=== PATIENT | female | born 1940 | race Caucasian/White ===

== ENCOUNTER → 2017-09-05 13:07 | Outpatient (CLI) | payer OTHER, SELFPAY ==
--- NOTE | 2017-09-05 | DI.US.S_ITS ---
PROCEDURE: US PERIPH VENOUS LOW EXTREM LT INDICATIONS: LEFT CALF SWELLING TECHNIQUE: Real-time imaging, as well as color and pulse Doppler interrogation, were performed of the lower extremity deep veins from the inguinal ligament to the popliteal fossa. COMPARISON: None. FINDINGS: The deep veins are normally compressible, and free of intraluminal thrombus. Color and pulse Doppler demonstrate normal phasic intraluminal flow. There is normal augmentation response to distal compression maneuver. Diffuse edema. Difficult exam. IMPRESSION: 1. Negative for DVT. Dictated by: Rosales Mai M.D. on 09/05/2017 at 15:51 Approved by: Rosales Mai M.D. on 09/05/2017 at 15:51
== END ==
PROVIDERS: PCP Internal Medicine; Visit Provider Physical Medicine & Rehabilitation
DX: M79.89 Other specified soft tissue disorders (principal)
CPT/HCPCS: 93971

== ENCOUNTER 2022-06-04 09:42 | Inpatient (IN) | payer OTHER, SELFPAY ==
[2022-06-04] VITALS (34 sets, daily range): BP systolic 92–232; BP diastolic 46–98; PULSE 75–102; RESP 16–24; TEMP 36.7–37.3; O2SAT 92–99; BMI 31.6
--- NOTE | 2022-06-04 09:50 | DI.RAD.S_ITS ---
PROCEDURE: XR CHEST 1V INDICATIONS: chest pain TECHNIQUE: One view of the chest was acquired. COMPARISON: None. FINDINGS: Surgical changes and devices: None. Lungs and pleura: There is mild pulmonary vascular congestion. No focal infiltrate. No pleural effusions or pneumothorax. Mediastinum: Mildly tortuous thoracic aorta with aortic arch calcification is seen. Heart size is mildly enlarged. Bones and chest wall: No suspicious bony lesions. Overlying soft tissues appear unremarkable. IMPRESSION: Cardiomegaly and mild congestion. No focal infiltrate, pleural effusion or pneumothorax. Dictated by: Andrew Zamarripa M.D. on 06/04/2022 at 10:21 Approved by: Andrew Zamarripa M.D. on 06/04/2022 at 10:24
[2022-06-04] MEDS: EPINEPHrine 1 MG/ML (09:53)
[2022-06-04] MEDS: diphenhydrAMINE 50 MG/ML VIAL (09:54)
[2022-06-04] MEDS: SODIUM CHLORIDE 0.9% 1,000 ML 1000 ML IV ×2 (09:54→12:40)
[2022-06-04] MEDS: methylPREDNISolone 125 MG/2 ML VIAL (09:54)
--- NOTE | 2022-06-04 09:54 | ED_ITS ---
HPI - Weakness General Chief complaint: Neuro Symptoms/Deficit Stated complaint: Increased L Weakness Time Seen by Provider: 06/04/22 09:49 History of Present Illness HPI Narrative: Patient is a 82-year-old female history of hemorrhagic stroke with left-sided weakness in 2009 presents today with worsening left-sided weakness when she woke up rash allover and hypotension. EMS reports that they had initial blood pressure in the 70s. She feels weaker than normal she is normally able to move her left arm a little bit however today it is much worse. She has no headache. Her blood pressure has improved with fluids to 103/80. She has no chest pain palpitations abdominal pain nausea or vomiting. She is noted have significant urticaria all over her body. She reports that she used a new tide detergent. She did not notice that she had a rash she only noticed that she had itching all over. She has no lip swelling tongue swelling or difficulty breathing. Related Data Home Medications Medication Instructions Recorded Confirmed alendronate 70 mg tablet (Fosamax) 70 mg PO QWEEKWE ##0 07/15/17 06/04/22 cholecalciferol (vitamin D3) 50 2,000 unit PO QDAY ##0 07/15/17 06/04/22 mcg (2,000 unit) capsule (Vitamin D3) fluoride (sodium) 1.1 % dental gel QDAY ##0 07/15/17 (PreviDent) hydrochlorothiazide 25 mg tablet 50 mg PO QDAY ##0 07/15/17 06/04/22 ibuprofen 200 mg tablet (Advil) 200 mg PO QDAYP PRN ##0 07/15/17 latanoprost 0.005 % eye drops 1 drp OPHTH HS ##0 07/15/17 06/04/22 levothyroxine 100 mcg tablet 100 mcg PO QAM ##0 07/15/17 06/04/22 losartan 50 mg tablet 50 mg PO QDAY ##0 07/15/17 06/04/22 omeprazole 20 mg tablet,delayed 20 mg PO QDAY ##0 07/15/17 06/04/22 release sulfacetamide sodium-sulfur 10 %-5 1 amari TP ##0 07/15/17 % (w/w) topical cream baclofen 10 mg tablet 10 mg PO BEDTIME 06/04/22 06/04/22 dorzolamide 22.3 mg-timolol 6.8 1 drp ophthalmic (eye) BID 06/04/22 06/04/22 mg/mL eye drops doxycycline hyclate 50 mg tablet 50 mg PO DAILY 06/04/22 06/04/22 metronidazole 0.75 % topical cream 1 applic topical BEDTIME 06/04/22 06/04/22 tolterodine 2 mg capsule,extended 2 mg PO DAILY PRN Spasms 06/04/22 06/04/22 release 24 hr Previous Rx's Medication Instructions Recorded meloxicam 7.5 mg tablet (Mobic) 7.5 mg PO BIDCC PRN #20 tabs 07/15/17 Allergies Allergy/AdvReac Type Severity Reaction Status Date / Time cranberry [CRANBERRY] Allergy Unknown NAUSEA/VOMI Verified 06/04/22 09:49 TING Penicillins [PENICILLINS] Allergy Unknown ITCHING Verified 06/04/22 09:49 almond [ALMOND] AdvReac Unknown DIARRHEA/GI Verified 06/04/22 09:49 Sulfa (Sulfonamide AdvReac Unknown NAUSEA Verified 06/04/22 09:49 Antibiotics) [SULFA (SULFONAMIDE ANTIBIOTICS)] walnut [WALNUT] AdvReac Unknown DIARRHEA/GI Verified 06/04/22 09:49 Review of Systems Review of Systems ROS Unobtainable: All systems reviewed & are unremarkable except as noted in HPI and below Patient History Social History Smoking Status: Never smoker Exam Initial Vital Signs Initial Vital Signs: Vital Signs Temperature 98.1 F 06/04/22 09:45 Pulse Rate 91 H 06/04/22 09:45 Respiratory Rate 18 06/04/22 09:45 Blood Pressure 103/51 L 06/04/22 09:45 Pulse Oximetry 98 06/04/22 09:45 Oxygen Delivery Method 06/04/22 09:45 GENERAL: Alert pleasant 82-year-old female HEENT: Head atraumatic,EOMI, pupils reactive, left-sided facial droop chronic CARDIOVASCULAR: Regular rate and rhythm without murmurs, rubs or gallops. RESPIRATORY: Breath sounds equal bilaterally, no wheezes rales or rhonchi. ABDOMEN: Soft, nontender. Normoactive bowel sounds all 4 quadrants. No guar ding or rebound. EXTREMITIES: Normal range of motion, no clubbing or edema. Neurovascularly intact NEUROLOGICAL: Alert and oriented x4. Weakness in left arm but able to [employer] my hands on able to lift left arm SKIN: Warm, dry, no laceration, no petechiae, no rashes or lesions. Course Orders Ordered: ED Orders 06/04/22 10:36 US abdomen limited Stat 06/04/22 11:20 Blood Culture Stat COVID19 -Nasal RAPID/Pre-Proc Stat 06/04/22 11:46 Urinalysis and Microscopic Stat 06/04/22 12:18 Lactate (Lactic Acid) Stat Acetaminophen (Acetaminophen 325 Mg Tablet) 650 mg PO Q6H PRN PRN Reason: Fever/Mild Pain (1-3) Baclofen (Baclofen 10 Mg Tablet) 10 mg PO BEDTIME CHAVA Diphenhydramine HCl (Diphenhydramine 50 Mg/Ml Vial) 25 mg IV Q6HR PRN PRN Reason: Itching/Rash Last Admin: 06/04/22 14:02 Dose: 25 mg Documented By: EDMUND Dorzolamide/Timolol (Dorzolamide/Timolol Ophth 10 Ml) 1 drops EYE-BOTH BID CHAVA Famotidine (Famotidine 20 Mg/2 Ml Vial) 20 mg IV NOW CHAVA Last Admin: 06/04/22 10:10 Dose: 20 mg Documented By: GISSELLE Hydromorphone HCl (Hydromorphone 0.5 Mg Inj) 0.5 mg IV Q4H PRN PRN Reason: Pain, Moderate (4-6) Sodium Chloride (Normal Saline 0.9%) 1,000 mls @ 1,000 mls/hr IV CONT CHAVA Last Infusion: 06/04/22 11:02 Dose: 0 mls/hr Documented By: Admin: 06/04/22 09:54 Dose: 1,000 mls/hr Documented By: GRABIEL Sodium Chloride (Normal Saline 0.9%) 1,000 mls @ 100 mls/hr IV CONT CHAVA Stop: 06/05/22 00:44 Last Infusion: 06/04/22 14:44 Dose: 100 mls/hr Documented By: Infusion: 06/04/22 14:12 Dose: 0 mls/hr Documented By: Admin: 06/04/22 14:06 Dose: 100 mls/hr Documented By: EDMUND Ceftriaxone Sodium 2,000 mg/ (Sodium Chloride) 100 mls @ 200 mls/hr IV Q24H [facility]AVA Stop: 06/10/22 08:59 Metronidazole (Flagyl) 500 mg in 100 mls @ 100 mls/hr IV Q8H [facility] Latanoprost (Latanoprost 0.005% Ophth 2.5 Ml) 1 drops EYE-BOTH BEDTIME [facility] Levothyroxine Sodium (Levothyroxine 100 Mcg Tablet) 100 mcg PO DAILY@0600 [facility] Melatonin (Melatonin 3 Mg Tablet) 6 mg PO BEDTIME PRN PRN Reason: Insomnia Naloxone HCl (Naloxone 0.4 Mg/Ml Vial) 0.2 mg IV Q2MIN PRN PRN Reason: Opiate Reversal Oxycodone HCl (Oxycodone Ir 5 Mg Tablet) 5 mg PO Q4HR PRN PRN Reason: Pain, Moderate (4-6) Pantoprazole Sodium (Pantoprazole Dr 40 Mg Tablet) 40 mg PO 0700 [facility] Polyethylene Glycol (Polyethylene Glycol 3350 17 Gm Powd.Pack) 17 gm PO DAILY PRN PRN Reason: Constipation Sennosides (Sennosides 8.6 Mg Tablet) 8.6 mg PO BID PRN PRN Reason: Constipation Discontinued Medications Diphenhydramine HCl (Diphenhydramine 50 Mg/Ml Vial) 25 mg IV NOW ONE Stop: 06/04/22 09:56 Last Admin: 06/04/22 09:56 Dose: Not Given Documented By: GRABIEL Epinephrine HCl (Epinephrine 1 Mg/Ml) 0.5 mg IM NOW ONE Stop: 06/04/22 09:56 Last Admin: 06/04/22 09:56 Dose: Not Given Documented By: GRABIEL Ceftriaxone Sodium 2,000 mg/ (Sodium Chloride) 100 mls @ 200 mls/hr IV NOW ONE Stop: 06/04/22 11:26 Last Infusion: 06/04/22 12:25 Dose: 0 mls/hr Documented By: Admin: 06/04/22 11:58 Dose: 200 mls/hr Documented By: GISSELLE Metronidazole (Flagyl) 500 mg in 100 mls @ 100 mls/hr IV NOW ONE Stop: 06/04/22 13:14 Last Infusion: 06/04/22 13:38 Dose: 0 mls/hr Documented By: Admin: 06/04/22 12:27 Dose: 100 mls/hr Documented By: GISSELLE Sodium Chloride (Normal Saline 0.9%) 1,000 mls @ 1,000 mls/hr IV BOLUS ONE Stop: 06/04/22 13:25 Last Infusion: 06/04/22 13:51 Dose: 0 mls/hr Documented By: Admin: 06/04/22 12:40 Dose: 1,000 mls/hr Documented By: GISSELLE POTASSIUM CHLORIDE IN WATER (Potassium Cl 10 Meq/100 Ml Faith) 10 meq in 100 mls @ 100 mls/hr IV Q1H [facility] Stop: 06/04/22 16:44 Last Admin: 06/04/22 14:44 Dose: Not Given Documented By: Admin: 06/04/22 14:44 Dose: Not Given Documented By: ROHIT POTASSIUM CHLORIDE IN WATER (Potassium Cl 10 Meq/100 Ml Faith) 10 meq in 100 mls @ 100 mls/hr IV Q1H [facility] Stop: 06/04/22 18:59 Last Admin: 06/04/22 17:51 Dose: 100 mls/hr Documented By: Infusion: 06/04/22 17:38 Dose: 100 mls/hr Documented By: Admin: 06/04/22 16:38 Dose: 100 mls/hr Documented By: Infusion: 06/04/22 16:29 Dose: 100 mls/hr Documented By: Admin: 06/04/22 15:29 Dose: 100 mls/hr Documented By: Infusion: 06/04/22 15:29 Dose: 100 mls/hr Documented By: Admin: 06/04/22 14:45 Dose: 100 mls/hr Documented By: ROHIT Methylprednisolone (Methylprednisolone 125 Mg/2 Ml Vial) 125 mg IV NOW ONE Stop: 06/04/22 09:56 Last Admin: 06/04/22 09:57 Dose: Not Given Documented By: CTS Vital Signs Vital signs: Vital Signs - 8 hr 06/04/22 11:30 06/04/22 11:54 06/04/22 11:54 Pulse Rate 91 H 93 H Respiratory Rate 19 22 Blood Pressure 110/58 L Pulse Oximetry 96 97 06/04/22 12:00 06/04/22 12:00 06/04/22 12:10 Pulse Rate 92 H Respiratory Rate 22 Blood Pressure 107/55 L 103/52 L Pulse Oximetry 96 06/04/22 12:10 06/04/22 12:20 06/04/22 12:20 Pulse Rate 90 89 Respiratory Rate 21 24 Blood Pressure 102/53 L Pulse Oximetry 96 96 06/04/22 12:30 06/04/22 12:30 Pulse Rate 90 Respiratory Rate 21 Blood Pressure 105/59 L Pulse Oximetry 97 MDM - Weakness Lab Data 06/04/22 09:50 06/04/22 09:50 Labs: Lab Results 06/04/22 06/04/22 06/04/22 Range/Units 09:50 09:50 09:50 WBC 21.1 H (4.5-11.0) X10^3/uL RBC 5.11 (4.0-5.2) X10^6/uL Hgb 14.5 (12.0-16.0) g/dL Hct 43.0 (36-46) % MCV 84.0 (80-100) fL MCH 28.3 (26-34) PG MCHC 33.7 (30-36) % RDW 14.4 (11.6-14.8) % Plt Count 311 (150-400) X10^3/uL Neut % (Auto) 86.1 H (50-75) % Lymph % (Auto) 5.9 L (25-40) % [place] % (Auto) 7.8 (3-14) % Eos % (Auto) 0.1 L (2-4) % Baso % (Auto) 0.1 (0-2) % Neut # (Auto) 61842 H (6475-9421) /uL Lymph # (Auto) 1200 (6595-2246) /uL [place] # (Auto) 1600 H (0-900) /uL Eos # (Auto) 0 (0-450) /uL Baso # (Auto) 0 (0-100) /uL PT 16.3 H (10.1-12.7) SECONDS INR 1.4 H (0.9-1.3) Sodium 131 L (137-145) mmol/L Potassium 3.2 L (3.4-5.1) mmol/L Chloride 100 (98-107) mmol/L Carbon Dioxide 19 L (22-32) mmol/L BUN 20 H (7-17) mg/dL Creatinine 1.30 H (0.52-1.04) mg/dL Estimated GFR 42 L (>60) mL/min BUN/Creatinine Ratio 15.4 (6-22) Glucose 121 H (80-110) mg/dL Lactate (0.7-2.1) mmol/L Calcium 9.1 (8.4-10.2) mg/dL Magnesium (1.6-2.3) mg/dL Total Bilirubin 1.9 H (0.2-1.3) mg/dL AST 33 (14-36) IU/L ALT 24 (<35) IU/L Alkaline Phosphatase 91 (38-126) U/L Total Creatine Kinase 88 (30-135) U/L CK-MB (CK-2) TNP CK-MB (CK-2) Rel Index TNP Troponin I < 0.012 (0.01-0.034) ng/mL Total Protein 6.4 (6.3-8.2) g/dL Albumin 3.3 L (3.5-5.0) g/dL Globulin 3.1 (1.7-4.1) g/dL Albumin/Globulin Ratio 1.1 (1.0-2.8) Lipase 29 (23-300) U/L Procalcitonin (<0.5) ng/mL TSH (0.47-4.68) uIU/mL Urine Color Urine Appearance Urine pH (4.5-8.0) Ur Specific [place] (1.000-1.035) Urine Protein (Negative) Urine Glucose (UA) (Negative) g/dL Urine Ketones (NEGATIVE) Urine Occult Blood (Negative) Urine Nitrate (Negative) Urine Bilirubin (NEGATIVE) Urine Urobilinogen (0.2) E.U./dL Ur Leukocyte Esterase (NEGATIVE) Urine RBC (0-5/HPF) Urine WBC (0-5/HPF) Urine Bacteria (None) Ur Culture Indicated? Micro UA Comment SARS-CoV-2 (PCR) (Negative) 06/04/22 06/04/22 06/04/22 Range/Units 09:58 09:58 10:52 WBC (4.5-11.0) X10^3/uL RBC (4.0-5.2) X10^6/uL Hgb (12.0-16.0) g/dL Hct (36-46) % MCV (80-100) fL MCH (26-34) PG MCHC (30-36) % RDW (11.6-14.8) % Plt Count (150-400) X10^3/uL Neut % (Auto) (50-75) % Lymph % (Auto) (25-40) % [place] % (Auto) (3-14) % Eos % (Auto) (2-4) % Baso % (Auto) (0-2) % Neut # (Auto) (7132-6456) /uL Lymph # (Auto) (6815-3421) /uL [place] # (Auto) (0-900) /uL Eos # (Auto) (0-450) /uL Baso # (Auto) (0-100) /uL PT (10.1-12.7) SECONDS INR (0.9-1.3) Sodium (137-145) mmol/L Potassium (3.4-5.1) mmol/L Chloride (98-107) mmol/L Carbon Dioxide (22-32) mmol/L BUN (7-17) mg/dL Creatinine (0.52-1.04) mg/dL Estimated GFR (>60) mL/min BUN/Creatinine Ratio (6-22) Glucose (80-110) mg/dL Lactate 1.8 (0.7-2.1) mmol/L Calcium (8.4-10.2) mg/dL Magnesium 1.7 (1.6-2.3) mg/dL Total Bilirubin (0.2-1.3) mg/dL AST (14-36) IU/L ALT (<35) IU/L Alkaline Phosphatase (38-126) U/L Total Creatine Kinase (30-135) U/L CK-MB (CK-2) CK-MB (CK-2) Rel Index Troponin I (0.01-0.034) ng/mL Total Protein (6.3-8.2) g/dL Albumin (3.5-5.0) g/dL Globulin (1.7-4.1) g/dL Albumin/Globulin Ratio (1.0-2.8) Lipase (23-300) U/L Procalcitonin 0.59 H (<0.5) ng/mL TSH (0.47-4.68) uIU/mL Urine Color Urine Appearance Urine pH (4.5-8.0) Ur Specific [place] (1.000-1.035) Urine Protein (Negative) Urine Glucose (UA) (Negative) g/dL Urine Ketones (NEGATIVE) Urine Occult Blood (Negative) Urine Nitrate (Negative) Urine Bilirubin (NEGATIVE) Urine Urobilinogen (0.2) E.U./dL Ur Leukocyte Esterase (NEGATIVE) Urine RBC (0-5/HPF) Urine WBC (0-5/HPF) Urine Bacteria (None) Ur Culture Indicated? Micro UA Comment SARS-CoV-2 (PCR) (Negative) 06/04/22 06/04/22 06/04/22 Range/Units 10:52 11:20 11:46 WBC (4.5-11.0) X10^3/uL RBC (4.0-5.2) X10^6/uL Hgb (12.0-16.0) g/dL Hct (36-46) % MCV (80-100) fL MCH (26-34) PG MCHC (30-36) % RDW (11.6-14.8) % Plt Count (150-400) X10^3/uL Neut % (Auto) (50-75) % Lymph % (Auto) (25-40) % [place] % (Auto) (3-14) % Eos % (Auto) (2-4) % Baso % (Auto) (0-2) % Neut # (Auto) (4343-4884) /uL Lymph # (Auto) (5479-9923) /uL [place] # (Auto) (0-900) /uL Eos # (Auto) (0-450) /uL Baso # (Auto) (0-100) /uL PT (10.1-12.7) SECONDS INR (0.9-1.3) Sodium (137-145) mmol/L Potassium (3.4-5.1) mmol/L Chloride (98-107) mmol/L Carbon Dioxide (22-32) mmol/L BUN (7-17) mg/dL Creatinine (0.52-1.04) mg/dL Estimated GFR (>60) mL/min BUN/Creatinine Ratio (6-22) Glucose (80-110) mg/dL Lactate (0.7-2.1) mmol/L Calcium (8.4-10.2) mg/dL Magnesium (1.6-2.3) mg/dL Total Bilirubin (0.2-1.3) mg/dL AST (14-36) IU/L ALT (<35) IU/L Alkaline Phosphatase (38-126) U/L Total Creatine Kinase (30-135) U/L CK-MB (CK-2) CK-MB (CK-2) Rel Index Troponin I (0.01-0.034) ng/mL Total Protein (6.3-8.2) g/dL Albumin (3.5-5.0) g/dL Globulin (1.7-4.1) g/dL Albumin/Globulin Ratio (1.0-2.8) Lipase (23-300) U/L Procalcitonin (<0.5) ng/mL TSH 0.89 (0.47-4.68) uIU/mL Urine Color Yellow Urine Appearance Clear Urine pH 7.5 (4.5-8.0) Ur Specific [place] 1.010 (1.000-1.035) Urine Protein Trace H (Negative) Urine Glucose (UA) Negative (Negative) g/dL Urine Ketones Negative (NEGATIVE) Urine Occult Blood Negative (Negative) Urine Nitrate Negative (Negative) Urine Bilirubin Negative (NEGATIVE) Urine Urobilinogen 0.2 (0.2) E.U./dL Ur Leukocyte Esterase Negative (NEGATIVE) Urine RBC None seen (0-5/HPF) Urine WBC None seen (0-5/HPF) Urine Bacteria None seen (None) Ur Culture Indicated? Cult not indicated Micro UA Comment Microscopic normal SARS-CoV-2 (PCR) Negative (Negative) 06/04/22 Range/Units 12:18 WBC (4.5-11.0) X10^3/uL RBC (4.0-5.2) X10^6/uL Hgb (12.0-16.0) g/dL Hct (36-46) % MCV (80-100) fL MCH (26-34) PG MCHC (30-36) % RDW (11.6-14.8) % Plt Count (150-400) X10^3/uL Neut % (Auto) (50-75) % Lymph % (Auto) (25-40) % [place] % (Auto) (3-14) % Eos % (Auto) (2-4) % Baso % (Auto) (0-2) % Neut # (Auto) (8278-1899) /uL Lymph # (Auto) (4812-0375) /uL [place] # (Auto) (0-900) /uL Eos # (Auto) (0-450) /uL Baso # (Auto) (0-100) /uL PT (10.1-12.7) SECONDS INR (0.9-1.3) Sodium (137-145) mmol/L Potassium (3.4-5.1) mmol/L Chloride (98-107) mmol/L Carbon Dioxide (22-32) mmol/L BUN (7-17) mg/dL Creatinine (0.52-1.04) mg/dL Estimated GFR (>60) mL/min BUN/Creatinine Ratio (6-22) Glucose (80-110) mg/dL Lactate 2.3 H (0.7-2.1) mmol/L Calcium (8.4-10.2) mg/dL Magnesium (1.6-2.3) mg/dL Total Bilirubin (0.2-1.3) mg/dL AST (14-36) IU/L ALT (<35) IU/L Alkaline Phosphatase (38-126) U/L Total Creatine Kinase (30-135) U/L CK-MB (CK-2) CK-MB (CK-2) Rel Index Troponin I (0.01-0.034) ng/mL Total Protein (6.3-8.2) g/dL Albumin (3.5-5.0) g/dL Globulin (1.7-4.1) g/dL Albumin/Globulin Ratio (1.0-2.8) Lipase (23-300) U/L Procalcitonin (<0.5) ng/mL TSH (0.47-4.68) uIU/mL Urine Color Urine Appearance Urine pH (4.5-8.0) Ur Specific [place] (1.000-1.035) Urine Protein (Negative) Urine Glucose (UA) (Negative) g/dL Urine Ketones (NEGATIVE) Urine Occult Blood (Negative) Urine Nitrate (Negative) Urine Bilirubin (NEGATIVE) Urine Urobilinogen (0.2) E.U./dL Ur Leukocyte Esterase (NEGATIVE) Urine RBC (0-5/HPF) Urine WBC (0-5/HPF) Urine Bacteria (None) Ur Culture Indicated? Micro UA Comment SARS-CoV-2 (PCR) (Negative) Imaging Data CT scan - head: Radiologist Impression: ?Karen Smith MR#: [id number] : 1940 Acct:[id number] Age/Sex: 82 / F Date of Service: 06/04/22 Loc: ED Accession Number: [id number] ?? Procedure: CT Stroke Ordering Provider: Romy Farias D.O. PROCEDURE:? CT STROKE ? INDICATIONS:? worse left weakness hx of bleed ? TECHNIQUE:? Noncontrast 4.5 mm thick angled axial sections acquired from the foramen magnum to the vertex, with coronal reformats.? For radiation dose reduction, the following was used:? automated exposure control, adjustment of mA and/or kV according to patient size.? ? COMPARISON:? None. ? FINDINGS:? Image quality:? Excellent.? ? CSF spaces:? Basal cisterns are patent.? No extra-axial fluid collections.? Ex vacuole dilatation of the right lateral ventricle. ? Brain:? No midline shift.? No intracranial masses or hemorrhage.? Small area of encephalomalacia at the right basal ganglia/thalamus due to remote infarct.? No area of hypodensity in a large vascular distribution to suggest acute infarction. Periventricular hypodensity consistent with chronic microvascular ischemic change.? Intracranial atherosclerotic calcifications.? Age-related parenchymal loss. ? Skull and face:? Calvarium and visualized facial bones are intact, without suspicious lesions.? ? Sinuses:? Visualized sinuses and mastoids are clear.? ? IMPRESSION:? No acute intracranial hemorrhage. ? Encephalomalacia from prior infarct in the right basal ganglia/thalamus. ? Comment: Findings were discussed with Romy Farias at 10:16 a.m. ? This study fulfills neurological imaging criteria for inclusion or exclusion of acute stroke therapies based on available published neurological imaging guidelines.? ? ? Dictated by: Constantino Malik M.D. on 06/04/2022 at 10:12 ? ? CTA - brain/neck: Radiologist Impression: Signed Patient: Karen Smith MR#: [id number] : 1940 Acct:[id number] Age/Sex: 82 / F Date of Service: 06/04/22 Loc: ED Accession Number: [id number] ?? Procedure: CT angio head and neck Ordering Provider: Romy Farias D.O. PROCEDURE:? CT ANGIO HEAD AND NECK ? INDICATIONS:? worse left weakness hx of bleed ? TECHNIQUE:? Pre-contrast 4.5 mm thick sections acquired from the foramen magnum to the vertex.? After the administration of intravenous contrast, 1 mm thick sections acquired from th e aortic arch through the [place].? Post-contrast 4.5 mm thick sections then re- acquired from the foramen magnum to the vertex.? 3-dimensional fdhobkg-yfkawdfhs-qgooitcxri (MIP) and/or volume rendering reformats were acquired of the central intracranial vasculature and neck separately. For radiation dose reduction, the following was used:? automated exposure control, adjustment of mA and/or kV according to patient size.? ? COMPARISON:? [facility], CT, CT STROKE, 06/04/2022, 10:01. ? FINDINGS:? Image quality:? Excellent.? ? BRAIN:? CSF spaces:? Ventricles are normal in size and shape.? Basal cisterns are patent.? No extra-axial fluid collections.? ? Brain:? No midline shift.? No intracranial bleeds or masses.? [place]-white matter interface appears intact.? Old right basal ganglia/deep white matter infarct with encephalomalacia. ?Old focal right cerebellar infarct.? Age-related volume loss and xpiv-[id number] small vessel ischemic change. ? Skull and face:? Calvarium and facial bones appear intact, without suspicious lesions.? Orbits appear normal.? ? Sinuses:? Sinuses and mastoids are clear.? ? HEAD CT ANGIOGRAPHY:? Anterior circulation:? Intracranial internal carotid arteries are normal in size and flow.? The flow within the paired anterior cerebral arteries is normal and symmetric.? The flow within the middle cerebral arteries is normal and symmetric.? The anterior communicating artery is seen.? No aneurysms are seen.? ? Posterior circulation:? Visualized portions of the vertebral arteries demonstrate normal caliber, and join to form a normal appearing basilar artery.? Flow within the posterior cerebral arteries is normal and symmetric.? No aneurysms are seen.? ? NECK CT ANGIOGRAPHY:? Carotid system:? The great vessels demonstrate a bovine arch anatomy as they arise from the aortic arch.? The origins of the common carotid arteries appear patent.? The common carotid arteries demonstrate normal caliber and courses.? The bifurcation regions are both widely patent.? There is mild bilateral proximal internal carotid artery stenosis secondary to soft plaque, less than 50%. ? Posterior circulation:? The origins of the vertebral arteries both appear widely patent.? The more superior extracranial portions of both vertebral arteries also demonstrate normal courses and calibers.? They join to form a normal appearing basilar artery.? ? Soft tissues:? Visualized neck soft tissues demonstrate no suspicious abnormalities.? ? Bones:? No suspicious bony lesions.? Visualized cervical spine appears normally aligned.? IMPRESSION:? ? 1. Old small infarcts.? Rqja-wx-uakqfcuq small vessel ischemic change. ? 2. No evidence of acute stroke, hemorrhage, or mass. ? 3. Unremarkable CTA head.? No stenosis, aneurysm, occlusion, or focal filling defect. ? 4. Less than 50% bilateral internal carotid artery stenosis. ? Comment: Findings were discussed with Dr. Farias on? 05/25 06/10 at 1034 hours ? ? ? Any quantitative measurements of stenosis were performed using NASCET criteria.? ? ? Dictated by: Ziggy Lerma M.D. on 06/04/2022 at 10:28 ? ? US - abdomen: Radiologist Impression: Ultrasound Report Signed Patient: Karen Smith MR#: [id number] : 1940 Acct:[id number] Age/Sex: 82 / F Date of Service: 06/04/22 Loc: ED Accession Number: [id number] ?? Procedure: US abdomen limited Ordering Provider: Romy Farias D.O. PROCEDURE: US ABDOMEN LIMITED ? INDICATIONS:? PAIN ? TECHNIQUE:? Real-time focused scanning was performed of the abdomen, with image documentation.? ? COMPARISON:? None. ? FINDINGS:? The liver is echogenic, suggesting fatty change. ? There are gallstones present in the gallbladder.? The gallbladder is somewhat distended.? The there is gallbladder wall thickening and some gallbladder wall edema.? No sonographic Marie sign noted. ? IMPRESSION:? ? 1. Probable fatty liver. ? 2. Constellation of findings in the gallbladder may represent acute cholecystitis.? There are gallstones.? The gallbladder wall is thickened with wall edema.? The gallbladder is distended.? Suggest clinical correlation. ? ? Dictated by: Ziggy Lerma M.D. on 06/04/2022 at 12:01 ? ? Approved by: Ziggy Lerma M.D. on 06/04/2022 at 12:03 ? ECG Data Interpretation: With artifact rate 89 OK interval 152 QRS [address] changes MDM Narrative Medical decision making narrative: Patient 82-year-old female with history of hemorrhagic stroke left-sided deficits with worsening weakness and hypotension with new rash. She was having some nausea vomiting epigastric pain yesterday as well not as much today. She was hypotensive for EMS with blood pressure in the 70s responded well to fluids in his not hypotensive here in the ED. Initially concern for possible stroke with worsening left arm weakness. Head CT and CT angio show no deficits. Stroke Neurology was consulted however with hypotension this is just likely exacerbation of chronic deficits. She is found to have significant urticarial rash no throat pain tongue swelling lip swelling or hoarseness. However due to hypotension she was given epinephrine. This was prior to our knowledge of nausea vomiting epigastric pain. Her rash improved with anaphylactic medications IM epinephrine, IV Solu-Medrol and IV Benadryl. She really is not significantly tender in her right upper quadrant however based on symptoms with nausea vomiting ultrasound was done. It does show acute cholecystitis choledocholithiasis. Bilirubin today is 1.9 without significant elevation of liver enzymes or lipase. She is also found to have leukocytosis of 20 with a left. Concern for sepsis vs hypovolemic shock. Lactic acid is 2.3 with lactic acid 0.59. Vitals are relatively stable now after IV fluids she is given antibiotics in the ED as well. Surgery has been consulted in regards to acute cholecystitis. At this time recommend supportive care only and she will consult. Dr. Feng updated on patient's symptoms test results and kindly accepts patient. Discharge Plan Departure Patient Disposition: Admitted As Inpatient Clinical Impression: Cholecystitis, Urticaria Admit Date/Time: 06/04/22 12:33 Admit Provider: Galen Feng
--- NOTE | 2022-06-04 09:58 | DI.CT.S_ITS ---
PROCEDURE: CT STROKE INDICATIONS: worse left weakness hx of bleed TECHNIQUE: Noncontrast 4.5 mm thick angled axial sections acquired from the foramen magnum to the vertex, with coronal reformats. For radiation dose reduction, the following was used: automated exposure control, adjustment of mA and/or kV according to patient size. COMPARISON: None. FINDINGS: Image quality: Excellent. CSF spaces: Basal cisterns are patent. No extra-axial fluid collections. Ex vacuole dilatation of the right lateral ventricle. Brain: No midline shift. No intracranial masses or hemorrhage. Small area of encephalomalacia at the right basal ganglia/thalamus due to remote infarct. No area of hypodensity in a large vascular distribution to suggest acute infarction. Periventricular hypodensity consistent with chronic microvascular ischemic change. Intracranial atherosclerotic calcifications. Age-related parenchymal loss. Skull and face: Calvarium and visualized facial bones are intact, without suspicious lesions. Sinuses: Visualized sinuses and mastoids are clear. IMPRESSION: No acute intracranial hemorrhage. Encephalomalacia from prior infarct in the right basal ganglia/thalamus. Comment: Findings were discussed with Romy Farias at 10:16 a.m. This study fulfills neurological imaging criteria for inclusion or exclusion of acute stroke therapies based on available published neurological imaging guidelines. Dictated by: Constantino Malik M.D. on 06/04/2022 at 10:12 Approved by: Constantino Malik M.D. on 06/04/2022 at 10:16
--- NOTE | 2022-06-04 09:58 | DI.CT.S_ITS ---
PROCEDURE: CT ANGIO HEAD AND NECK INDICATIONS: worse left weakness hx of bleed TECHNIQUE: Pre-contrast 4.5 mm thick sections acquired from the foramen magnum to the vertex. After the administration of intravenous contrast, 1 mm thick sections acquired from the aortic arch through the [place]. Post-contrast 4.5 mm thick sections then re-acquired from the foramen magnum to the vertex. 3-dimensional vmtncfx-fmltzdoxg-lmvnavzkei (MIP) and/or volume rendering reformats were acquired of the central intracranial vasculature and neck separately. For radiation dose reduction, the following was used: automated exposure control, adjustment of mA and/or kV according to patient size. COMPARISON: [facility], CT, CT STROKE, 06/04/2022, 10:01. FINDINGS: Image quality: Excellent. BRAIN: CSF spaces: Ventricles are normal in size and shape. Basal cisterns are patent. No extra-axial fluid collections. Brain: No midline shift. No intracranial bleeds or masses. [place]-white matter interface appears intact. Old right basal ganglia/deep white matter infarct with encephalomalacia. Old focal right cerebellar infarct. Age-related volume loss and izol-pd-nyjtirel small vessel ischemic change. Skull and face: Calvarium and facial bones appear intact, without suspicious lesions. Orbits appear normal. Sinuses: Sinuses and mastoids are clear. HEAD CT ANGIOGRAPHY: Anterior circulation: Intracranial internal carotid arteries are normal in size and flow. The flow within the paired anterior cerebral arteries is normal and symmetric. The flow within the middle cerebral arteries is normal and symmetric. The anterior communicating artery is seen. No aneurysms are seen. Posterior circulation: Visualized portions of the vertebral arteries demonstrate normal caliber, and join to form a normal appearing basilar artery. Flow within the posterior cerebral arteries is normal and symmetric. No aneurysms are seen. NECK CT ANGIOGRAPHY: Carotid system: The great vessels demonstrate a bovine arch anatomy as they arise from the aortic arch. The origins of the common carotid arteries appear patent. The common carotid arteries demonstrate normal caliber and courses. The bifurcation regions are both widely patent. There is mild bilateral proximal internal carotid artery stenosis secondary to soft plaque, less than 50%. Posterior circulation: The origins of the vertebral arteries both appear widely patent. The more superior extracranial portions of both vertebral arteries also demonstrate normal courses and calibers. They join to form a normal appearing basilar artery. Soft tissues: Visualized neck soft tissues demonstrate no suspicious abnormalities. Bones: No suspicious bony lesions. Visualized cervical spine appears normally aligned. IMPRESSION: 1. Old small infarcts. Qraw-jp-pquwontw small vessel ischemic change. 2. No evidence of acute stroke, hemorrhage, or mass. 3. Unremarkable CTA head. No stenosis, aneurysm, occlusion, or focal filling defect. 4. Less than 50% bilateral internal carotid artery stenosis. Comment: Findings were discussed with Dr. Farias on 05/25 06/10 at 1034 hours Any quantitative measurements of stenosis were performed using NASCET criteria. Dictated by: Ziggy Lerma M.D. on 06/04/2022 at 10:28 Approved by: Ziggy Lerma M.D. on 06/04/2022 at 10:36
[2022-06-04] MEDS: FAMOTIDINE 20 MG/2 ML VIAL IV (10:10)
[2022-06-04 10:16] LABS: Lactate (Lactic Acid) 1.8 mmol/L (0.7-2.1)
--- NOTE | 2022-06-04 10:23 | PC.NURSE ---
at baseline has left sided weakness, but able to move left arm slightly side to side if sitting upright fully, ambulates with cane, left leg weakness, and left facial droop and decreased left sensation post 2010 hemmorhaghic stroke
--- NOTE | 2022-06-04 10:29 | PC.NURSE ---
pt covered in hives at triage/arrival, now since cleared completely post allergy meds given see mar. pt denies sob, resp even unlabored, left arm slightl stronger.
[2022-06-04 10:34] LABS: Procalcitonin 0.59 ng/mL (<0.5)
--- NOTE | 2022-06-04 10:36 | DI.US.S_ITS ---
PROCEDURE: US ABDOMEN LIMITED INDICATIONS: PAIN TECHNIQUE: Real-time focused scanning was performed of the abdomen, with image documentation. COMPARISON: None. FINDINGS: The liver is echogenic, suggesting fatty change. There are gallstones present in the gallbladder. The gallbladder is somewhat distended. The there is gallbladder wall thickening and some gallbladder wall edema. No sonographic Marie sign noted. IMPRESSION: 1. Probable fatty liver. 2. Constellation of findings in the gallbladder may represent acute cholecystitis. There are gallstones. The gallbladder wall is thickened with wall edema. The gallbladder is distended. Suggest clinical correlation. Dictated by: Ziggy Lerma M.D. on 06/04/2022 at 12:01 Approved by: Ziggy Lerma M.D. on 06/04/2022 at 12:03
[2022-06-04 10:59] LABS: INR 1.4 (0.9-1.3); Prothrombin Time 16.3 SECONDS (10.1-12.7)
[2022-06-04 11:02] LABS: Add Manual Diff / Slide Review NO; Basophils Absolute Auto 0 /uL (0-100); Basophils Percent Auto 0.1 % (0-2); Eosinophils Absolute Auto 0 /uL (0-450); Eosinophils Percent Auto 0.1 % (2-4); Hemoglobin 14.5 g/dL (12.0-16.0); Lymphocytes Absolute Auto 1200 /uL (1100-4500); Lymphocytes Percent Auto 5.9 % (25-40); Mean Corpuscular HGB Conc 33.7 % (30-36); Mean Corpuscular Hemoglobin 28.3 PG (26-34); Monocytes Absolute Auto 1600 /uL (0-900); Monocytes Percent Auto 7.8 % (3-14); Neutrophils Absolute Auto 18200 /uL (1500-7000); Neutrophils Percent Auto 86.1 % (50-75); Platelet Count 311 X10^3/uL (150-400); Red Blood Cell Count 5.11 X10^6/uL (4.0-5.2); Red Cell Distribution Width 14.4 % (11.6-14.8); White Blood Cell Count 21.1 X10^3/uL (4.5-11.0)
[2022-06-04 11:26] LABS: Alanine Aminotransferase 24 IU/L (<35); Albumin 3.3 g/dL (3.5-5.0); Albumin Globulin Ratio 1.1 (1.0-2.8); Alkaline Phosphatase 91 U/L (38-126); Aspartate Aminotransferase 33 IU/L (14-36); BUN Creatinine Ratio 15.4 (6-22); Bilirubin Total 1.9 mg/dL (0.2-1.3); Blood Urea Nitrogen 20 mg/dL (7-17); Calcium 9.1 mg/dL (8.4-10.2); Carbon Dioxide 19 mmol/L (22-32); Chloride 100 mmol/L (98-107); Creatine Kinase 88 U/L (30-135); Estimated Glomerular Filt Rate 42 mL/min (>60); Globulin 3.1 g/dL (1.7-4.1); Glucose 121 mg/dL (80-110); HEMOLYSIS 30 (0-50); Lipase 29 U/L (23-300); Potassium 3.2 mmol/L (3.4-5.1); Sodium 131 mmol/L (137-145); Total Protein 6.4 g/dL (6.3-8.2)
[2022-06-04 11:29] LABS: COVID19 -Nasal RAPID Negative (Negative)
[2022-06-04 11:38] LABS: Troponin I < 0.012 ng/mL (0.01-0.034)
[2022-06-04 11:58] LABS: Appearance Urine UA CLEAR; Bilirubin Urine UA NEGATIVE (NEGATIVE); Color Urine UA YELLOW; Glucose Urine UA NEGATIVE (Negative); Ketones Urine UA NEGATIVE (NEGATIVE); Leukocyte Esterase Urine UA NEGATIVE (NEGATIVE); Nitrite Urine UA NEGATIVE (Negative); Occult Blood Urine UA NEGATIVE (Negative); Protein Urine UA TRACE (Negative); Urobilinogen Urine UA 0.2 E.U./dL (0.2)
[2022-06-04] MEDS: cefTRIAXone 2,000 MG in SODIUM CHLORIDE 0.9% 100 ML 200 MG IV (11:58)
[2022-06-04 12:02] LABS: pH Urine UA 7.5 (4.5-8.0)
[2022-06-04 12:06] LABS: Bacteria Urine None Seen; Culture Indicated Urine Cult Not Indicated; RBC Urine None Seen (0-5/HPF); Urine Comments Microscopic Normal; WBC Urine None Seen (0-5/HPF)
[2022-06-04] MEDS: metroNIDAZOLE 500 MG/100 ML PIGGYBACK 100 MG IV ×2 (12:27→20:35)
[2022-06-04 12:44] LABS: Lactate (Lactic Acid) 2.3 mmol/L (0.7-2.1)
[2022-06-04 13:07] LABS: Magnesium 1.7 mg/dL (1.6-2.3)
--- NOTE | 2022-06-04 13:08 | P.HP_ITS ---
History of Present Illness History of Present Illness Date Patient Seen: 06/04/22 Chief complaint: Increased L Weakness Narrative: Karen Smith is an 82-year-old female with past medical history of hemorrhagic stroke in 2010 s/p chronic left-sided deficits, hypertension, and hypothyroidism who presents with hypotension, urticaria and rash and found to have possible acute cholecystitis. Patient notes she started using a new detergent and today developed a full body rash with hives. EMS called and noted hypotension to 70's systolic. She was brought to ED where she got epi and benadryl and her hypotension and rash resolved. Was found to have WBC 21 and noted RUQ abd pain. Abd US showed likely acute cholecystitis. Patient says she has had a few weeks of waxing and waning abd pain with occasional NV. Denies CP, dyspnea, or diarrhea. Patient History Family & Social History Safety & Behavioral: Feels Safe in Current Yes Environment Been Physically Hurt or No Threatened By a Person Tobacco & Substance use: Smoking Status Never smoker alcohol intake frequency 0-2 drinks per day Substance Use Type does not use Meds Home Medications and Allergies Home Medications Medication Instructions Recorded Confirmed Type alendronate 70 mg tablet (Fosamax) 70 mg PO QWEEKWE ##0 07/15/17 06/04/22 History cholecalciferol (vitamin D3) 50 2,000 unit PO QDAY ##0 07/15/17 06/04/22 History mcg (2,000 unit) capsule (Vitamin D3) fluoride (sodium) 1.1 % dental gel QDAY ##0 07/15/17 History (PreviDent) hydrochlorothiazide 25 mg tablet 50 mg PO QDAY ##0 07/15/17 06/04/22 History ibuprofen 200 mg tablet (Advil) 200 mg PO QDAYP PRN ##0 07/15/17 History latanoprost 0.005 % eye drops 1 drp OPHTH HS ##0 07/15/17 06/04/22 History levothyroxine 100 mcg tablet 100 mcg PO QAM ##0 07/15/17 06/04/22 History losartan 50 mg tablet 50 mg PO QDAY ##0 07/15/17 06/04/22 History meloxicam 7.5 mg tablet (Mobic) 7.5 mg PO BIDCC PRN #20 tabs 07/15/17 06/04/22 Rx omeprazole 20 mg tablet,delayed 20 mg PO QDAY ##0 07/15/17 06/04/22 History release sulfacetamide sodium-sulfur 10 %-5 1 amari TP ##0 07/15/17 History % (w/w) topical cream baclofen 10 mg tablet 10 mg PO BEDTIME 06/04/22 06/04/22 History dorzolamide 22.3 mg-timolol 6.8 1 drp ophthalmic (eye) BID 06/04/22 06/04/22 History mg/mL eye drops doxycycline hyclate 50 mg tablet 50 mg PO DAILY 06/04/22 06/04/22 History metronidazole 0.75 % topical cream 1 applic topical BEDTIME 06/04/22 06/04/22 History tolterodine 2 mg capsule,extended 2 mg PO DAILY PRN Spasms 06/04/22 06/04/22 History release 24 hr Allergies Allergy/AdvReac Type Severity Reaction Status Date / Time cranberry [CRANBERRY] Allergy Unknown NAUSEA/VOMI Verified 06/04/22 09:49 TING Penicillins [PENICILLINS] Allergy Unknown ITCHING Verified 06/04/22 09:49 almond [ALMOND] AdvReac Unknown DIARRHEA/GI Verified 06/04/22 09:49 Sulfa (Sulfonamide AdvReac Unknown NAUSEA Verified 06/04/22 09:49 Antibiotics) [SULFA (SULFONAMIDE ANTIBIOTICS)] walnut [WALNUT] AdvReac Unknown DIARRHEA/GI Verified 06/04/22 09:49 Review of Systems Review of Systems Narrative: All other systems reviewed with the patient and are negative unless otherwise stated. Exam Vital Signs (past 8 hours): - 06/04/22 09:45 06/04/22 09:46 06/04/22 09:48 Temperature 98.1 F Pulse Rate 91 H 90 Respiratory Rate 18 Blood Pressure 103/51 L 104/55 L Pulse Oximetry 98 95 Oxygen Delivery Method Room Air 06/04/22 09:48 06/04/22 09:50 06/04/22 09:50 Temperature Pulse Rate 94 H 87 Respiratory Rate 23 21 Blood Pressure 94/51 L Pulse Oximetry 97 96 Oxygen Delivery Method 06/04/22 09:54 06/04/22 09:54 06/04/22 10:00 Temperature Pulse Rate 90 88 Respiratory Rate 21 Blood Pressure 119/57 L Pulse Oximetry 97 97 Oxygen Delivery Method 06/04/22 10:15 06/04/22 10:15 06/04/22 10:20 Temperature Pulse Rate 85 Respiratory Rate 20 Blood Pressure 128/61 138/65 Pulse Oximetry 99 Oxygen Delivery Method 06/04/22 10:20 06/04/22 10:30 06/04/22 10:31 Temperature Pulse Rate 85 77 Respiratory Rate 20 24 Blood Pressure 232/98 H Pulse Oximetry 98 98 Oxygen Delivery Method 06/04/22 10:31 06/04/22 10:34 06/04/22 10:35 Temperature Pulse Rate 75 82 Respiratory Rate 24 20 Blood Pressure 223/83 H Pulse Oximetry 97 98 Oxygen Delivery Method 06/04/22 10:35 06/04/22 10:40 06/04/22 10:40 Temperature Pulse Rate 85 86 Respiratory Rate 21 21 Blood Pressure 160/60 H Pulse Oximetry 98 98 Oxygen Delivery Method Room Air 06/04/22 10:50 06/04/22 10:50 06/04/22 10:52 Temperature Pulse Rate 88 Respiratory Rate 21 Blood Pressure 129/58 L 119/54 L Pulse Oximetry 97 Oxygen Delivery Method 06/04/22 10:52 06/04/22 10:56 06/04/22 10:56 Temperature Pulse Rate 90 90 Respiratory Rate 23 22 Blood Pressure 113/55 L Pulse Oximetry 97 96 Oxygen Delivery Method 06/04/22 11:00 06/04/22 11:01 06/04/22 11:01 Temperature Pulse Rate 89 97 H Respiratory Rate 22 22 Blood Pressure 121/65 Pulse Oximetry 96 97 Oxygen Delivery Method 06/04/22 11:10 06/04/22 11:10 06/04/22 11:30 Temperature Pulse Rate 93 H 91 H Respiratory Rate 22 19 Blood Pressure 92/54 L Pulse Oximetry 97 96 Oxygen Delivery Method 06/04/22 11:54 06/04/22 11:54 06/04/22 12:00 Temperature Pulse Rate 93 H Respiratory Rate 22 Blood Pressure 110/58 L 107/55 L Pulse Oximetry 97 Oxygen Delivery Method 06/04/22 12:00 06/04/22 12:10 06/04/22 12:10 Temperature Pulse Rate 92 H 90 Respiratory Rate 22 21 Blood Pressure 103/52 L Pulse Oximetry 96 96 Oxygen Delivery Method 06/04/22 12:20 06/04/22 12:20 06/04/22 12:30 Temperature Pulse Rate 89 Respiratory Rate 24 Blood Pressure 102/53 L 105/59 L Pulse Oximetry 96 Oxygen Delivery Method 06/04/22 12:30 Temperature Pulse Rate 90 Respiratory Rate 21 Blood Pressure Pulse Oximetry 97 Oxygen Delivery Method Oxygen Delivery Method Room Air Narrative Exam Narrative: GEN: no acute distress HEENT: moist mucous membranes, PERRL NECK: trachea midline, no JVD CV: regular rate and rhythm, no murmurs PULM: clear bilaterally ABD: soft, mild RUQ tenderness, nondistended, no organomegaly EXT: warm and well perfused, left leg larger than right since her stroke apparently NEURO: awake, alert, oriented, left facial droop, left arm and leg weakness which is chronic Objective Labs 06/04/22 09:50 06/04/22 09:50 Labs: Laboratory Results - last 24 hr 06/04/22 06/04/22 06/04/22 09:50 09:50 09:50 WBC 21.1 H RBC 5.11 Hgb 14.5 Hct 43.0 MCV 84.0 MCH 28.3 MCHC 33.7 RDW 14.4 Plt Count 311 Neut % (Auto) 86.1 H Lymph % (Auto) 5.9 L [place] % (Auto) 7.8 Eos % (Auto) 0.1 L Baso % (Auto) 0.1 Neut # (Auto) 20939 H Lymph # (Auto) 1200 [place] # (Auto) 1600 H Eos # (Auto) 0 Baso # (Auto) 0 PT 16.3 H INR 1.4 H Sodium 131 L Potassium 3.2 L Chloride 100 Carbon Dioxide 19 L BUN 20 H Creatinine 1.30 H Estimated GFR 42 L BUN/Creatinine Ratio 15.4 Glucose 121 H Lactate Calcium 9.1 Magnesium Total Bilirubin 1.9 H AST 33 ALT 24 Alkaline Phosphatase 91 Total Creatine Kinase 88 CK-MB (CK-2) TNP CK-MB (CK-2) Rel Index TNP Troponin I < 0.012 Total Protein 6.4 Albumin 3.3 L Globulin 3.1 Albumin/Globulin Ratio 1.1 Lipase 29 Procalcitonin Urine Color Urine Appearance Urine pH Ur Specific [place] Urine Protein Urine Glucose (UA) Urine Ketones Urine Occult Blood Urine Nitrate Urine Bilirubin Urine Urobilinogen Ur Leukocyte Esterase Urine RBC Urine WBC Urine Bacteria Ur Culture Indicated? Micro UA Comment SARS-CoV-2 (PCR) 06/04/22 06/04/22 06/04/22 09:58 09:58 10:52 WBC RBC Hgb Hct MCV MCH MCHC RDW Plt Count Neut % (Auto) Lymph % (Auto) [place] % (Auto) Eos % (Auto) Baso % (Auto) Neut # (Auto) Lymph # (Auto) [place] # (Auto) Eos # (Auto) Baso # (Auto) PT INR Sodium Potassium Chloride Carbon Dioxide BUN Creatinine Estimated GFR BUN/Creatinine Ratio Glucose Lactate 1.8 Calcium Magnesium 1.7 Total Bilirubin AST ALT Alkaline Phosphatase Total Creatine Kinase CK-MB (CK-2) CK-MB (CK-2) Rel Index Troponin I Total Protein Albumin Globulin Albumin/Globulin Ratio Lipase Procalcitonin 0.59 H Urine Color Urine Appearance Urine pH Ur Specific [place] Urine Protein Urine Glucose (UA) Urine Ketones Urine Occult Blood Urine Nitrate Urine Bilirubin Urine Urobilinogen Ur Leukocyte Esterase Urine RBC Urine WBC Urine Bacteria Ur Culture Indicated? Micro UA Comment SARS-CoV-2 (PCR) 06/04/22 06/04/22 06/04/22 11:20 11:46 12:18 WBC RBC Hgb Hct MCV MCH MCHC RDW Plt Count Neut % (Auto) Lymph % (Auto) [place] % (Auto) Eos % (Auto) Baso % (Auto) Neut # (Auto) Lymph # (Auto) [place] # (Auto) Eos # (Auto) Baso # (Auto) PT INR Sodium Potassium Chloride Carbon Dioxide BUN Creatinine Estimated GFR BUN/Creatinine Ratio Glucose Lactate 2.3 H Calcium Magnesium Total Bilirubin AST ALT Alkaline Phosphatase Total Creatine Kinase CK-MB (CK-2) CK-MB (CK-2) Rel Index Troponin I Total Protein Albumin Globulin Albumin/Globulin Ratio Lipase Procalcitonin Urine Color Yellow Urine Appearance Clear Urine pH 7.5 Ur Specific [place] 1.010 Urine Protein Trace H Urine Glucose (UA) Negative Urine Ketones Negative Urine Occult Blood Negative Urine Nitrate Negative Urine Bilirubin Negative Urine Urobilinogen 0.2 Ur Leukocyte Esterase Negative Urine RBC None seen Urine WBC None seen Urine Bacteria None seen Ur Culture Indicated? Cult not indicated Micro UA Comment Microscopic normal SARS-CoV-2 (PCR) Negative Assessment & Plan Assessment & Plan narrative: # sepsis secondary to acute cholecystitis -WBC 21.1 and evidence of acute cholecystitis on abdominal ultrasound, T bili 1.9 but normal LFTs. End-organ damage evidenced by creatinine of 1.3. Procal 0.59. LA 2.3. -Dr. Jeff general surgery to consult -NPO midnight for cholecystectomy on 06/05 -continue Rocephin and Flagyl, no Zosyn due to penicillin allergy -follow-up blood cultures # acute urticarial reaction with hypotension, resolving -per patient was due to new detergent -received Benadryl and epinephrine injection in ED and blood pressure now improved -continue Benadryl IV 25 mg q.6 as needed # FREDY -creatinine 1.3, baseline unknown -s/p 2 L boluses in ED -continue 100 cc/hour -avoid nephrotoxic agents -daily BMPs # hypokalemia -potassium 3.2 on admission -replete and monitor -Mag 1.7, giving 2 g # hyponatremia -Na 131 on admission, nathalia hypovolemic -fluids and monitor # hypertension, chronic -hold home BP meds in the setting of sepsis and hypotension # hypothyroidism, chronic -continue home levothyroxine -check TSH Code status is Full code. COVID negative. DVT prophylaxis with SCDs given probable surgery. Proxy is spouse Kane. I have reviewed home meds and used all available resources to reconcile the home meds. This patient will be admitted as inpatient and will require greater than 2 midnights of hospital time to treat sepsis and acute cholecystitis. Time Spent With Patient Critical Care time: I spent a total of [] minutes of critical care time on this patient's care today; this time is exclusive of procedural time.
[2022-06-04 13:39] LABS: TSH w/ Reflex to FT4 0.89 uIU/mL (0.47-4.68)
--- NOTE | 2022-06-04 13:54 | PC.NURSE ---
Addendum entered by Caleb Zimmerman R.N. 06/04/22 14:04: ED provider aware of pt redness/itching. Per provider OK to give 25 mg of Benadryl IV per PRN order. Original Note: Attempted to call hospitalist twice regarding patient redness/itching of right hand.
[2022-06-04] MEDS: diphenhydrAMINE 50 MG/ML VIAL 25 MG IV (14:02)
[2022-06-04] MEDS: SODIUM CHLORIDE 0.9% 1,000 ML 100 ML IV (14:06)
[2022-06-04 14:28] LABS: Reflexed Lactate in 2 Hours Y
[2022-06-04] MEDS: POTASSIUM CHLORIDE IN WATER 10 MEQ/100 ML PIGGYBACK 100 MEQ IV ×4 (14:45→17:51)
[2022-06-04 15:13] LABS: Lactate 2HR (Lactic Acid Rflx) 1.3 mmol/L (0.7-2.1)
--- NOTE | 2022-06-04 18:57 | PM.CN ---
History of Present Illness Consult details Date Patient Seen: 06/04/22 Chief complaint: Increased L Weakness Reason for consult: Acute Cholecystits. Requesting provider: Geovanni Ocampo Narrative: Mrs. Smith presented today to the emergency room because of abdominal pain. This pain started about of last week and was radiating through to her right side. It was getting worse. She describes the pain as feeling like a bra strap around the bottom part of her upper chest that was too tight. She has had some episodes of diarrhea and emesis in the last few months. 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 In fact she has a vacation scheduled around the 17 of June to visit her daughters in [place]. She is hoping that her recovery from surgery would not interfere with this trip. At this time her abdominal pain is tolerable and under control. Meds Home Medications and Allergies Home Medications Medication Instructions Recorded Confirmed Type alendronate 70 mg tablet (Fosamax) 70 mg PO QWEEKWE ##0 07/15/17 06/04/22 History cholecalciferol (vitamin D3) 50 2,000 unit PO QDAY ##0 07/15/17 06/04/22 History mcg (2,000 unit) capsule (Vitamin D3) fluoride (sodium) 1.1 % dental gel QDAY ##0 07/15/17 History (PreviDent) hydrochlorothiazide 25 mg tablet 50 mg PO QDAY ##0 07/15/17 06/04/22 History ibuprofen 200 mg tablet (Advil) 200 mg PO QDAYP PRN ##0 07/15/17 History latanoprost 0.005 % eye drops 1 drp OPHTH HS ##0 07/15/17 06/04/22 History levothyroxine 100 mcg tablet 100 mcg PO QAM ##0 07/15/17 06/04/22 History losartan 50 mg tablet 50 mg PO QDAY ##0 07/15/17 06/04/22 History meloxicam 7.5 mg tablet (Mobic) 7.5 mg PO BIDCC PRN #20 tabs 07/15/17 06/04/22 Rx omeprazole 20 mg tablet,delayed 20 mg PO QDAY ##0 07/15/17 06/04/22 History release sulfacetamide sodium-sulfur 10 %-5 1 amari TP ##0 07/15/17 History % (w/w) topical cream baclofen 10 mg tablet 10 mg PO BEDTIME 06/04/22 06/04/22 History dorzolamide 22.3 mg-timolol 6.8 1 drp ophthalmic (eye) BID 06/04/22 06/04/22 History mg/mL eye drops doxycycline hyclate 50 mg tablet 50 mg PO DAILY 06/04/22 06/04/22 History metronidazole 0.75 % topical cream 1 applic topical BEDTIME 06/04/22 06/04/22 History tolterodine 2 mg capsule,extended 2 mg PO DAILY PRN Spasms 06/04/22 06/04/22 History release 24 hr Allergies Allergy/AdvReac Type Severity Reaction Status Date / Time cranberry [CRANBERRY] Allergy Unknown NAUSEA/VOMI Verified 06/04/22 09:49 TING Penicillins [PENICILLINS] Allergy Unknown ITCHING Verified 06/04/22 09:49 almond [ALMOND] AdvReac Unknown DIARRHEA/GI Verified 06/04/22 09:49 Sulfa (Sulfonamide AdvReac Unknown NAUSEA Verified 06/04/22 09:49 Antibiotics) [SULFA (SULFONAMIDE ANTIBIOTICS)] walnut [WALNUT] AdvReac Unknown DIARRHEA/GI Verified 06/04/22 09:49 Exam Vital Signs (past 8 hours): - 06/04/22 11:00 06/04/22 11:01 06/04/22 11:01 Temperature Pulse Rate 89 97 H Respiratory Rate 22 22 Blood Pressure 121/65 Pulse Oximetry 96 97 Oxygen Delivery Method 06/04/22 11:10 06/04/22 11:10 06/04/22 11:30 Temperature Pulse Rate 93 H 91 H Respiratory Rate 22 19 Blood Pressure 92/54 L Pulse Oximetry 97 96 Oxygen Delivery Method 06/04/22 11:54 06/04/22 11:54 06/04/22 12:00 Temperature Pulse Rate 93 H Respiratory Rate 22 Blood Pressure 110/58 L 107/55 L Pulse Oximetry 97 Oxygen Delivery Method 06/04/22 12:00 06/04/22 12:10 06/04/22 12:10 Temperature Pulse Rate 92 H 90 Respiratory Rate 22 21 Blood Pressure 103/52 L Pulse Oximetry 96 96 Oxygen Delivery Method 06/04/22 12:20 06/04/22 12:20 06/04/22 12:30 Temperature Pulse Rate 89 Respiratory Rate 24 Blood Pressure 102/53 L 105/59 L Pulse Oximetry 96 Oxygen Delivery Method 06/04/22 12:30 06/04/22 13:00 06/04/22 13:00 Temperature Pulse Rate 90 83 Respiratory Rate 21 19 Blood Pressure 116/57 L Pulse Oximetry 97 97 Oxygen Delivery Method 06/04/22 13:14 06/04/22 13:14 06/04/22 13:15 Temperature Pulse Rate 83 83 Respiratory Rate 21 Blood Pressure 97/52 L Pulse Oximetry 97 97 Oxygen Delivery Method 06/04/22 13:15 06/04/22 13:20 06/04/22 13:20 Temperature Pulse Rate 80 Respiratory Rate 17 Blood Pressure 98/54 L 97/55 L Pulse Oximetry 98 Oxygen Delivery Method 06/04/22 13:30 06/04/22 13:30 06/04/22 13:45 Temperature Pulse Rate 82 Respiratory Rate 16 Blood Pressure 104/51 L 104/54 L Pulse Oximetry 98 Oxygen Delivery Method 06/04/22 13:45 06/04/22 14:00 06/04/22 14:00 Temperature Pulse Rate 83 85 Respiratory Rate 19 17 Blood Pressure 105/58 L Pulse Oximetry 97 97 Oxygen Delivery Method 06/04/22 14:23 06/04/22 12:36 Temperature 98.1 F Pulse Rate 89 Respiratory Rate 18 Blood Pressure 103/46 L Pulse Oximetry 92 Oxygen Delivery Method Room Air Oxygen Delivery Method Room Air Const General: cooperative, comfortable and No acute distress Orientation: alert, awake and oriented x3 Limitations: physical limitations (hemiparalysis) Other: Hemiplegic but articulate and oriented Resp Effort & Inspection: normal respiratory effort and able to speak in complete sentences Cardio Pulses: radial pulses present GI Palpation: soft and tender (Right upper quadrant mildly tender.) Objective Labs 06/04/22 09:50 06/04/22 09:50 Labs: Laboratory Results - last 24 hr 06/04/22 06/04/22 06/04/22 09:50 09:50 09:50 WBC 21.1 H RBC 5.11 Hgb 14.5 Hct 43.0 MCV 84.0 MCH 28.3 MCHC 33.7 RDW 14.4 Plt Count 311 Neut % (Auto) 86.1 H Lymph % (Auto) 5.9 L Keith % (Auto) 7.8 Eos % (Auto) 0.1 L Baso % (Auto) 0.1 Neut # (Auto) 47413 H Lymph # (Auto) 1200 Keith # (Auto) 1600 H Eos # (Auto) 0 Baso # (Auto) 0 PT 16.3 H INR 1.4 H Sodium 131 L Potassium 3.2 L Chloride 100 Carbon Dioxide 19 L BUN 20 H Creatinine 1.30 H Estimated GFR 42 L BUN/Creatinine Ratio 15.4 Glucose 121 H Lactate Calcium 9.1 Magnesium Total Bilirubin 1.9 H AST 33 ALT 24 Alkaline Phosphatase 91 Total Creatine Kinase 88 CK-MB (CK-2) TNP CK-MB (CK-2) Rel Index TNP Troponin I < 0.012 Total Protein 6.4 Albumin 3.3 L Globulin 3.1 Albumin/Globulin Ratio 1.1 Lipase 29 Procalcitonin TSH Urine Color Urine Appearance Urine pH Ur Specific [place] Urine Protein Urine Glucose (UA) Urine Ketones Urine Occult Blood Urine Nitrate Urine Bilirubin Urine Urobilinogen Ur Leukocyte Esterase Urine RBC Urine WBC Urine Bacteria Ur Culture Indicated? Micro UA Comment SARS-CoV-2 (PCR) 06/04/22 06/04/22 06/04/22 09:58 09:58 10:52 WBC RBC Hgb Hct MCV MCH MCHC RDW Plt Count Neut % (Auto) Lymph % (Auto) Keith % (Auto) Eos % (Auto) Baso % (Auto) Neut # (Auto) Lymph # (Auto) Keith # (Auto) Eos # (Auto) Baso # (Auto) PT INR Sodium Potassium Chloride Carbon Dioxide BUN Creatinine Estimated GFR BUN/Creatinine Ratio Glucose Lactate 1.8 Calcium Magnesium 1.7 Total Bilirubin AST ALT Alkaline Phosphatase Total Creatine Kinase CK-MB (CK-2) CK-MB (CK-2) Rel Index Troponin I Total Protein Albumin Globulin Albumin/Globulin Ratio Lipase Procalcitonin 0.59 H TSH Urine Color Urine Appearance Urine pH Ur Specific [place] Urine Protein Urine Glucose (UA) Urine Ketones Urine Occult Blood Urine Nitrate Urine Bilirubin Urine Urobilinogen Ur Leukocyte Esterase Urine RBC Urine WBC Urine Bacteria Ur Culture Indicated? Micro UA Comment SARS-CoV-2 (PCR) 06/04/22 06/04/22 06/04/22 10:52 11:20 11:46 WBC RBC Hgb Hct MCV MCH MCHC RDW Plt Count Neut % (Auto) Lymph % (Auto) Keith % (Auto) Eos % (Auto) Baso % (Auto) Neut # (Auto) Lymph # (Auto) Keith # (Auto) Eos # (Auto) Baso # (Auto) PT INR Sodium Potassium Chloride Carbon Dioxide BUN Creatinine Estimated GFR BUN/Creatinine Ratio Glucose Lactate Calcium Magnesium Total Bilirubin AST ALT Alkaline Phosphatase Total Creatine Kinase CK-MB (CK-2) CK-MB (CK-2) Rel Index Troponin I Total Protein Albumin Globulin Albumin/Globulin Ratio Lipase Procalcitonin TSH 0.89 Urine Color Yellow Urine Appearance Clear Urine pH 7.5 Ur Specific [place] 1.010 Urine Protein Trace H Urine Glucose (UA) Negative Urine Ketones Negative Urine Occult Blood Negative Urine Nitrate Negative Urine Bilirubin Negative Urine Urobilinogen 0.2 Ur Leukocyte Esterase Negative Urine RBC None seen Urine WBC None seen Urine Bacteria None seen Ur Culture Indicated? Cult not indicated Micro UA Comment Microscopic normal SARS-CoV-2 (PCR) Negative 06/04/22 06/04/22 12:18 14:55 WBC RBC Hgb Hct MCV MCH MCHC RDW Plt Count Neut % (Auto) Lymph % (Auto) Keith % (Auto) Eos % (Auto) Baso % (Auto) Neut # (Auto) Lymph # (Auto) Keith # (Auto) Eos # (Auto) Baso # (Auto) PT INR Sodium Potassium Chloride Carbon Dioxide BUN Creatinine Estimated GFR BUN/Creatinine Ratio Glucose Lactate 2.3 H 1.3 Calcium Magnesium Total Bilirubin AST ALT Alkaline Phosphatase Total Creatine Kinase CK-MB (CK-2) CK-MB (CK-2) Rel Index Troponin I Total Protein Albumin Globulin Albumin/Globulin Ratio Lipase Procalcitonin TSH Urine Color Urine Appearance Urine pH Ur Specific [place] Urine Protein Urine Glucose (UA) Urine Ketones Urine Occult Blood Urine Nitrate Urine Bilirubin Urine Urobilinogen Ur Leukocyte Esterase Urine RBC Urine WBC Urine Bacteria Ur Culture Indicated? Micro UA Comment SARS-CoV-2 (PCR) [facility] Tobacco & Substance Use Smoking Status: Never smoker Assessment & Plan Assessment & Plan narrative: I have reviewed the laboratory values and the ultrasound findings and I agree with the diagnosis of acute cholecystitis. I discussed with Mrs. Smith different options including laparoscopic possible open cholecystectomy. And this is her preference. Does not want to have this problem again and wants to be in as good of a place to visit her daughters as possible; she enjoys her life and feels it is quite active and would like to have surgery to prevent ongoing gallbladder issues. At this time her labs do show leukocytosis and some creatinine bump, hypokalemia hyponatremia consistent with infection and dehydration. I see that she is on antibiotics and IV fluids and so I expect an improvement in these areas in tomorrow's labs. She has a total bilirubin of 1.9. Will check that again in the morning these labs have been ordered. Dr. Cobb may choose to do an intraoperative cholangiogram, wait, or proceed with cholecystectomy depending on the trend in the bilirubin. Today I would keep her NPO with the expectation that she may undergo laparoscopic cholecystectomy with Dr. Cobb tomorrow. I discussed these above issues with Dr. Ocampo who agrees. Time Spent With Patient Critical Care time: I spent a total of [] minutes of critical care time on this patient's care today; this time is exclusive of procedural time.
[2022-06-04] MEDS: BACLOFEN 10 MG TABLET PO (20:33)
[2022-06-05] VITALS (16 sets, daily range): BP systolic 91–130; BP diastolic 47–70; PULSE 51–89; RESP 11–19; TEMP 35.4–37; O2SAT 96–99; BMI 31.6
--- NOTE | 2022-06-05 | PATH_ITS ---
[facility] Accession Number: [id number] No. of containers..01 Tissue . 01 Material submitted: . gallbladder - GALLBLADDER . 01 Diagnosis: Gallbladder, Cholecystectomy: Chronic active cholecystitis with ulceration. Cholelithiasis. Negative for dysplasia and malignancy. [facility] 06/23/2022 1045 Local . 01 Electronically signed: . Amrita Jackson MD, Pathologist NPI- [id number] . 01 Gross description: . Received in formalin labeled gallbladder is a 9.0 cm in length by up to 4.6 cm in diameter, unopened, intact gallbladder with a maroon-brown, smooth and glistening anterior serosal surface and roughened posterior bed. The wall is thickened and indurated, ranging up to 0.6 cm. The mucosa is brown-srinivasan and granular with geographical areas of adherent green plaque-like material. Found within the lumen and embedded in the cystic duct are multiple 0.2 to 0.8 cm black irregular calculi. Located near the cystic duct is a 0.6 x 0.5 cm possible lymph node. The cystic duct margin is marked with blue ink. Overweaver sections are submitted in A1. Additional sections to include remaining cystic duct margin and full thickness sections are submitted in cassette A2. ([id number]) /MRV 06/23/2022 1439 Local . 01 Pathologist provided ICD-10: K80.60, K81.0 . 01 CPT . 960947 Specimen Comment: A courtesy copy of this report has been sent to [phone] Performed at: 01 [facility] [address] [place] [address] [address], [place], [place] [id number] MD Mark Mccormack MD Phone: [phone]
[2022-06-05] MEDS: SODIUM CHLORIDE 0.9% 1,000 ML 100 ML IV ×2 (00:10→17:43)
[2022-06-05] MEDS: diphenhydrAMINE 50 MG/ML VIAL 25 MG IV ×3 (02:27→12:30)
[2022-06-05 05:54] LABS: Add Manual Diff / Slide Review NO; Basophils Absolute Auto 0 /uL (0-100); Basophils Percent Auto 0.1 % (0-2); Eosinophils Absolute Auto 0 /uL (0-450); Hematocrit 35.3 % (36-46); Hemoglobin 11.9 g/dL (12.0-16.0); Lymphocytes Absolute Auto 800 /uL (1100-4500); Lymphocytes Percent Auto 4.8 % (25-40); Mean Corpuscular HGB Conc 33.7 % (30-36); Mean Corpuscular Volume 83.1 fL (80-100); Monocytes Absolute Auto 600 /uL (0-900); Monocytes Percent Auto 3.8 % (3-14); Neutrophils Absolute Auto 14600 /uL (1500-7000); Neutrophils Percent Auto 91.3 % (50-75); Platelet Count 231 X10^3/uL (150-400); Red Blood Cell Count 4.24 X10^6/uL (4.0-5.2); Red Cell Distribution Width 14.7 % (11.6-14.8); White Blood Cell Count 15.9 X10^3/uL (4.5-11.0)
[2022-06-05] MEDS: LEVOTHYROXINE 100 MCG TABLET PO (06:09)
[2022-06-05] MEDS: PANTOPRAZOLE DR 40 MG TABLET PO (06:09)
[2022-06-05 06:17] LABS: Procalcitonin 1.04 ng/mL (<0.5)
[2022-06-05 07:09] LABS: Alanine Aminotransferase 21 IU/L (<35); Albumin 2.8 g/dL (3.5-5.0); Albumin Globulin Ratio 1.1 (1.0-2.8); Alkaline Phosphatase 78 U/L (38-126); Aspartate Aminotransferase 24 IU/L (14-36); BUN Creatinine Ratio 21.7 (6-22); Bilirubin Total 0.5 mg/dL (0.2-1.3); Blood Urea Nitrogen 20 mg/dL (7-17); Calcium 8.5 mg/dL (8.4-10.2); Carbon Dioxide 22 mmol/L (22-32); Chloride 106 mmol/L (98-107); Estimated Glomerular Filt Rate > 60 mL/min (>60); Globulin 2.5 g/dL (1.7-4.1); Glucose 130 mg/dL (80-110); HEMOLYSIS < 15 (0-50); Potassium 3.1 mmol/L (3.4-5.1); Sodium 137 mmol/L (137-145); Total Protein 5.3 g/dL (6.3-8.2)
--- NOTE | 2022-06-05 07:55 | P.PN_ITS ---
Subjective Subjective Date Patient Seen: 06/05/22 Interval history: Patient awaiting lap ivana today. Has no complaints. Would like a hair brush and to brush her teeth. Exam Vital Signs (past 8 hours): - 06/05/22 05:49 Temperature 98.6 F Pulse Rate 89 Respiratory Rate 16 Blood Pressure 124/67 Pulse Oximetry 98 Oxygen Flow Rate 0 Oxygen Delivery Method Room Air Oxygen Flow Rate 0 Narrative Exam Narrative: GEN: no acute distress HEENT: moist mucous membranes, PERRL NECK: trachea midline, no JVD CV: regular rate and rhythm, no murmurs PULM: clear bilaterally ABD: soft, mild RUQ tenderness, nondistended, no organomegaly EXT: warm and well perfused, left leg larger than right since her stroke appar ently NEURO: awake, alert, oriented, left facial droop, left arm and leg weakness which is chronic Objective Labs 06/05/22 05:35 06/05/22 05:35 Labs: Laboratory Results - last 24 hr 06/04/22 06/04/22 06/04/22 09:50 09:50 09:50 WBC 21.1 H RBC 5.11 Hgb 14.5 Hct 43.0 MCV 84.0 MCH 28.3 MCHC 33.7 RDW 14.4 Plt Count 311 Neut % (Auto) 86.1 H Lymph % (Auto) 5.9 L [place] % (Auto) 7.8 Eos % (Auto) 0.1 L Baso % (Auto) 0.1 Neut # (Auto) 64023 H Lymph # (Auto) 1200 [place] # (Auto) 1600 H Eos # (Auto) 0 Baso # (Auto) 0 PT 16.3 H INR 1.4 H Sodium 131 L Potassium 3.2 L Chloride 100 Carbon Dioxide 19 L BUN 20 H Creatinine 1.30 H Estimated GFR 42 L BUN/Creatinine Ratio 15.4 Glucose 121 H Lactate Calcium 9.1 Magnesium Total Bilirubin 1.9 H AST 33 ALT 24 Alkaline Phosphatase 91 Total Creatine Kinase 88 CK-MB (CK-2) TNP CK-MB (CK-2) Rel Index TNP Troponin I < 0.012 Total Protein 6.4 Albumin 3.3 L Globulin 3.1 Albumin/Globulin Ratio 1.1 Lipase 29 Procalcitonin TSH Urine Color Urine Appearance Urine pH Ur Specific [place] Urine Protein Urine Glucose (UA) Urine Ketones Urine Occult Blood Urine Nitrate Urine Bilirubin Urine Urobilinogen Ur Leukocyte Esterase Urine RBC Urine WBC Urine Bacteria Ur Culture Indicated? Micro UA Comment SARS-CoV-2 (PCR) 06/04/22 06/04/22 06/04/22 09:58 09:58 10:52 WBC RBC Hgb Hct MCV MCH MCHC RDW Plt Count Neut % (Auto) Lymph % (Auto) [place] % (Auto) Eos % (Auto) Baso % (Auto) Neut # (Auto) Lymph # (Auto) [place] # (Auto) Eos # (Auto) Baso # (Auto) PT INR Sodium Potassium Chloride Carbon Dioxide BUN Creatinine Estimated GFR BUN/Creatinine Ratio Glucose Lactate 1.8 Calcium Magnesium 1.7 Total Bilirubin AST ALT Alkaline Phosphatase Total Creatine Kinase CK-MB (CK-2) CK-MB (CK-2) Rel Index Troponin I Total Protein Albumin Globulin Albumin/Globulin Ratio Lipase Procalcitonin 0.59 H TSH Urine Color Urine Appearance Urine pH Ur Specific [place] Urine Protein Urine Glucose (UA) Urine Ketones Urine Occult Blood Urine Nitrate Urine Bilirubin Urine Urobilinogen Ur Leukocyte Esterase Urine RBC Urine WBC Urine Bacteria Ur Culture Indicated? Micro UA Comment SARS-CoV-2 (PCR) 06/04/22 06/04/22 06/04/22 10:52 11:20 11:46 WBC RBC Hgb Hct MCV MCH MCHC RDW Plt Count Neut % (Auto) Lymph % (Auto) [place] % (Auto) Eos % (Auto) Baso % (Auto) Neut # (Auto) Lymph # (Auto) [place] # (Auto) Eos # (Auto) Baso # (Auto) PT INR Sodium Potassium Chloride Carbon Dioxide BUN Creatinine Estimated GFR BUN/Creatinine Ratio Glucose Lactate Calcium Magnesium Total Bilirubin AST ALT Alkaline Phosphatase Total Creatine Kinase CK-MB (CK-2) CK-MB (CK-2) Rel Index Troponin I Total Protein Albumin Globulin Albumin/Globulin Ratio Lipase Procalcitonin TSH 0.89 Urine Color Yellow Urine Appearance Clear Urine pH 7.5 Ur Specific [place] 1.010 Urine Protein Trace H Urine Glucose (UA) Negative Urine Ketones Negative Urine Occult Blood Negative Urine Nitrate Negative Urine Bilirubin Negative Urine Urobilinogen 0.2 Ur Leukocyte Esterase Negative Urine RBC None seen Urine WBC None seen Urine Bacteria None seen Ur Culture Indicated? Cult not indicated Micro UA Comment Microscopic normal SARS-CoV-2 (PCR) Negative 06/04/22 06/04/22 06/05/22 12:18 14:55 05:35 WBC RBC Hgb Hct MCV MCH MCHC RDW Plt Count Neut % (Auto) Lymph % (Auto) [place] % (Auto) Eos % (Auto) Baso % (Auto) Neut # (Auto) Lymph # (Auto) [place] # (Auto) Eos # (Auto) Baso # (Auto) PT INR Sodium 137 Potassium 3.1 L Chloride 106 Carbon Dioxide 22 BUN 20 H Creatinine 0.92 Estimated GFR > 60 BUN/Creatinine Ratio 21.7 Glucose 130 H Lactate 2.3 H 1.3 Calcium 8.5 Magnesium Total Bilirubin 0.5 AST 24 ALT 21 Alkaline Phosphatase 78 Total Creatine Kinase CK-MB (CK-2) CK-MB (CK-2) Rel Index Troponin I Total Protein 5.3 L Albumin 2.8 L Globulin 2.5 Albumin/Globulin Ratio 1.1 Lipase Procalcitonin TSH Urine Color Urine Appearance Urine pH Ur Specific [place] Urine Protein Urine Glucose (UA) Urine Ketones Urine Occult Blood Urine Nitrate Urine Bilirubin Urine Urobilinogen Ur Leukocyte Esterase Urine RBC Urine WBC Urine Bacteria Ur Culture Indicated? Micro UA Comment SARS-CoV-2 (PCR) 06/05/22 06/05/22 05:35 05:35 WBC 15.9 H RBC 4.24 Hgb 11.9 L Hct 35.3 L MCV 83.1 MCH 28.0 MCHC 33.7 RDW 14.7 Plt Count 231 Neut % (Auto) 91.3 H Lymph % (Auto) 4.8 L [place] % (Auto) 3.8 Eos % (Auto) 0.0 L Baso % (Auto) 0.1 Neut # (Auto) 92939 H Lymph # (Auto) 800 L [place] # (Auto) 600 Eos # (Auto) 0 Baso # (Auto) 0 PT INR Sodium Potassium Chloride Carbon Dioxide BUN Creatinine Estimated GFR BUN/Creatinine Ratio Glucose Lactate Calcium Magnesium Total Bilirubin AST ALT Alkaline Phosphatase Total Creatine Kinase CK-MB (CK-2) CK-MB (CK-2) Rel Index Troponin I Total Protein Albumin Globulin Albumin/Globulin Ratio Lipase Procalcitonin 1.04 H TSH Urine Color Urine Appearance Urine pH Ur Specific [place] Urine Protein Urine Glucose (UA) Urine Ketones Urine Occult Blood Urine Nitrate Urine Bilirubin Urine Urobilinogen Ur Leukocyte Esterase Urine RBC Urine WBC Urine Bacteria Ur Culture Indicated? Micro UA Comment SARS-CoV-2 (PCR) [facility] Social History Smoking Status: Never smoker Assessment & Plan Assessment & Plan narrative: # sepsis secondary to acute cholecystitis, sepsis resolved -WBC 21.1 and evidence of acute cholecystitis on abdominal ultrasound, T bili 1 .9 but normal LFTs. End-organ damage evidenced by creatinine of 1.3. Procal 0.59. LA 2.3. -Dr. Jeff general surgery to consult -cholecystectomy today at 06/05 -continue Rocephin and Flagyl, no Zosyn due to penicillin allergy -follow-up blood cultures # acute urticarial reaction with hypotension, resolved -per patient was due to new detergent -received Benadryl and epinephrine injection in ED and blood pressure now improved -continue Benadryl IV 25 mg q.6 as needed # FREDY, resolved -creatinine 1.3, baseline unknown -s/p 2 L boluses in ED -avoid nephrotoxic agents -daily BMPs # hypokalemia -potassium 3.2 on admission -replete and monitor -Mag 1.7, gave 2g # hyponatremia, resolved -Na 131 on admission, nathalia hypovolemic -fluids and monitor # hypertension, chronic -hold home BP meds in the setting of sepsis and hypotension # hypothyroidism, chronic -continue home levothyroxine -TSH normal Code status is Full code. COVID negative. DVT prophylaxis with SCDs given probable surgery. Proxy is spouse Kane. Dispo: Home in 1-2 days following lap ivana. Time Spent With Patient Critical Care time: I spent a total of [] minutes of critical care time on this patient's care today; this time is exclusive of procedural time.
[2022-06-05] MEDS: POTASSIUM CHLORIDE 20 MEQ TAB 40 MEQ PO (08:57)
[2022-06-05] MEDS: MAGNESIUM SULFATE 2 GM/50 ML PIGGYBACK IV (08:57)
--- NOTE | 2022-06-05 09:56 | PM.CALLCOV.1 ---
Call Coverage Note Note Date of Patient Contact: 06/05/22 Time of Patient Contact: 09:56 Narrative of Care Provided: 82-year-old woman with resolving acute cholecystitis. To OR today for laparoscopic cholecystectomy.
--- NOTE | 2022-06-05 11:16 | CM.DANOTE ---
Initial DCP Assessment Note Pt is an 82 yo female, resident of [place], arrived to the ER with complaint of worsening left-sided weakness when she woke up rash allover and hypotension. After work up patient found to have diagnosis of acute cholecystitis and is scheduled for lap ivana with Dr Cobb today PCP: Lori Shaw Payer: Weston Resendiz Met w/patient to introduce self and role. Patient in good spirits, explains she lives with spouse who is a wonderful caregiver. Patient w/PMH of hemorrhagic stroke with left-sided weakness which limits her ability to complete higher ADLs independently. Patient uses a cane for short distances, reports using her wheelchair mostly around her home and when going out. Spouse drives, completes chores, errands, cooking and assists with bathing as needed. Patient and spouse go out often for activities and to attend musical events. Patient/spouse have three daughters that have rotated their visits in the past in order to assist patient/spouse as needed. In addition, patient w/hx staying at [facility] for respite to give her a break in caregiving Provided Senior Resource Guide per patient's request. Patient explains she is aware she would need either RESIDENTIAL vs in home care if something were to happen to my Following for needs. r/o need for HH closer to [place]. Patient sees an outpatient PT she trusts and admires, she may want to continue seeing this person, unless getting in/out of the care is temporarily too difficult post operatively FAMILIA Ybarra Discharge Planning/Care Management CM Discharge Assessment Start: 06/05/22 11:09 Freq: Status: Active Protocol: Document 06/05/22 11:09 EMIR (Rec: 06/05/22 11:16 EMIR [id number]) Discharge Planning Assessment Assigned [place] FAMILIA Ordoñez DPOA/Assigned Designee Name Kane Smith, spouse Contact Information [phone] Advance Directives? Yes Advance Directives on File No History Provided By Patient,Medical Record Prior Living Arrangements House Household Members spouse Type of transporation used prior to Relies on Others admit Independent with ADL's No: Spouse assists w/higher ADLs Is patient alert and oriented? Yes Needs Assistance With Bathing,Meal Prep,Home Chores / Shopping Patient/Family Preference Home with Home Health Comment May not need HH, discuss with patient and family post operatively Barriers to Discharge No Comment Patient expects to return home w/her spouse and likely continuation of outpatient PT. Patient and spouse have 3 daughters that can rotate assistance as needed Discharge Plan Home Transportation Arrangement Family Referrals Initiated None needed Additional Comment r/o need for HH closer to [place] Whiteboard Updated in Patient Room with Yes name and ext. # of [place]
[2022-06-05] MEDS: cefTRIAXone 2,000 MG in SODIUM CHLORIDE 0.9% 100 ML 200 MG IV (12:31)
--- NOTE | 2022-06-05 14:57 | PM.PREOP ---
Pre-operative Note Interval Note History & Physical reviewed/Exam performed by Physician: Yes Changes to H&P: No H&P completed within 30 days and has changed as indicated here:: 82F with acute cholecystitis. We discussed management including surgery and non operative. Following discussion preference is to proceed with laparoscopic cholecystectomy. Overview of operation discussed including risks of bleeding, infection, damage to surrounding structures, bile duct injury. Questions have been answered and she is in agreement with this plan.
[2022-06-05] MEDS: LACTATED RINGERS 1,000 ML 42 ML IV ×2 (15:24→15:58)
[2022-06-05] MEDS: BUPIVACAINE 0.5% W/ EPI (PF) 30 ML VIAL INJ (15:36)
--- NOTE | 2022-06-05 15:40 | SUR.OPER ---
Supine on padded OR bed, head on pillow, safety belt at thigh, left arm padded and tucked at side. Right arm secured on padded arm board <90 degrees abduction. Legs uncrossed. Padded footboard in place. Tape over blanket to secure lower legs.
--- NOTE | 2022-06-05 16:48 | P.OP_ITS ---
Operative Date/Time/Diagnoses Date of procedure: 06/05/22 Time of procedure: 16:48 Pre-op diagnosis: Acute cholecystitis Post-op diagnosis: same Procedure & Clinicians Procedure: Laparoscopic cholecystectomy Same procedure as scheduled: Yes Indications: 82-year-old woman with symptoms and radiographic findings consistent with acute cholecystitis. Surgeon: Abdi Cobb Operative Notes Findings: Small volume of purulence material within the right upper quadrant. Gallbladder is thick-walled tense and distended. Specimen(s): other (Gallbladder) Estimated Blood Loss (mL): 100 Procedure in detail: The patient was placed supine on the table and bilateral lower extremity compression devices were applied. Anesthesia was induced they were intubated with an endotracheal tube accommodated previously received Rocephin prior to arrival in the operating room.. A time-out was performed. They were prepped and draped in sterile fashion. An infraumbilical incision was made. The fascia was elevated incised and the abdomen was entered atraumatically. A blunt tip 12mm balloon trocar was then inserted, pneumoperitoneum was established and inspec tion of the abdomen demonstrated no evidence of injury. They were placed head up and right side up and then a 11 mm port was placed high in the epigastrium and two 5mm in the right upper quadrant. There was purulence within the right upper quadrant and the gallbladder was thick-walled tense and distended. The gallbladder was percutaneously drained to facilitate its manipulation. The gallbladder was grasped by the fundus and retracted over the liver and retracted laterally by the infundibulum. The hepatocystic triangle was meticulosly skeletonized with blunt dissection of fat and fibrous tissue from both the front and the back. Only two structures were then clearly seen entering the gallbladder the cystic duct and the cystic artery. With the critical view of safety fully established the cystic duct was clipped twice proximally and once distally using the 10 mm Weck hemoclip applied under direct visualization and then sharply divided. The cystic artery was divided in the same fashion. The gallbladder was removed from the liver bed using electro cautery. The liver bed was then inspected for hemostasis and this was achieved. The abdomen was irrigated with sterile saline and inspection was made that showed the clips in good position. The specimen was removed using Endo-Catch. The abdomen was desufflated. The umbilical fascia was closed with 0 Vicryl in a [id number] fashion under direct visualization. Skin incisions were irrigated and closed with 4-0 Monocryl. 30 ml of 0.25% bupivacaine was infiltrated into the subcutaneous tissue of the incisions. The wounds were sealed with Dermabond. Patient emerged from anesthesia was extubated and transferred to recovery in stable condition. The sponge and instrument count at the end of the operation was correct. Complications: none Post-operative Condition: stable Disposition: Acute Care
--- NOTE | 2022-06-05 17:29 | SUR.PHASEI ---
trasferred back to 223. belongings already in room. comfrtable, no n/v. resting, answers appropriately.
--- NOTE | 2022-06-05 17:51 | PC.NURSE ---
Pt arrived from PACU around 5:35, very drowsy but arousable. Hypotensive at 91/47, HR 52. Pt states she is tired, no c/o pain. 4 lap sites with dermabond to abdomen c/d/i. Purewick in place, pt resting comfortably, call light within reach, bed alarm activated.
[2022-06-06 00:32] VITALS: BP 152/68; PULSE 80; RESP 18; TEMP 36.7; O2SAT 97
[2022-06-06] MEDS: SODIUM CHLORIDE 0.9% 1,000 ML 100 ML IV (03:45)
[2022-06-06 04:11] VITALS: BP 140/78; PULSE 82; RESP 16; TEMP 36.7; O2SAT 96
[2022-06-06] MEDS: LEVOTHYROXINE 100 MCG TABLET PO (05:57)
[2022-06-06] MEDS: PANTOPRAZOLE DR 40 MG TABLET PO (06:12)
[2022-06-06 06:39] LABS: Add Manual Diff / Slide Review NO; Basophils Absolute Auto 0 /uL (0-100); Basophils Percent Auto 0.2 % (0-2); Eosinophils Absolute Auto 0 /uL (0-450); Hematocrit 32.8 % (36-46); Lymphocytes Absolute Auto 800 /uL (1100-4500); Lymphocytes Percent Auto 5.6 % (25-40); Mean Corpuscular HGB Conc 33.4 % (30-36); Mean Corpuscular Hemoglobin 28.2 PG (26-34); Mean Corpuscular Volume 84.4 fL (80-100); Monocytes Absolute Auto 600 /uL (0-900); Monocytes Percent Auto 4.6 % (3-14); Neutrophils Absolute Auto 12200 /uL (1500-7000); Neutrophils Percent Auto 89.6 % (50-75); Platelet Count 256 X10^3/uL (150-400); Red Blood Cell Count 3.89 X10^6/uL (4.0-5.2); White Blood Cell Count 13.6 X10^3/uL (4.5-11.0)
[2022-06-06 06:46] LABS: Magnesium 2.5 mg/dL (1.6-2.3)
[2022-06-06 06:47] LABS: Alanine Aminotransferase 43 IU/L (<35); Albumin 3.1 g/dL (3.5-5.0); Albumin Globulin Ratio 1.1 (1.0-2.8); Alkaline Phosphatase 82 U/L (38-126); Aspartate Aminotransferase 56 IU/L (14-36); BUN Creatinine Ratio 24.7 (6-22); Bilirubin Total 0.4 mg/dL (0.2-1.3); Blood Urea Nitrogen 20 mg/dL (7-17); Calcium 8.2 mg/dL (8.4-10.2); Carbon Dioxide 21 mmol/L (22-32); Chloride 111 mmol/L (98-107); Estimated Glomerular Filt Rate > 60 mL/min (>60); Globulin 2.9 g/dL (1.7-4.1); Glucose 104 mg/dL (80-110); HEMOLYSIS < 15 (0-50); Potassium 3.7 mmol/L (3.4-5.1); Sodium 139 mmol/L (137-145)
[2022-06-06 07:29] VITALS: BP 151/68; PULSE 68; RESP 20; TEMP 36.8; O2SAT 95
[2022-06-06] MEDS: DORZOLAMIDE/TIMOLOL OPHTH 10 ML 1 DROPS EYE-BOTH (08:42)
[2022-06-06 12:00] VITALS: BP 125/59; PULSE 66; RESP 18; TEMP 36.5; O2SAT 98
--- NOTE | 2022-06-06 12:29 | P.PN_ITS ---
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 Patient notes she started using a new detergent and today developed a full body rash with hives. EMS called and noted hypotension to 70's systolic ad a hives rash over most of the body. She was brought to ED where she got epi and benadryl and her hypotension and rash resolved. Was found to have WBC 21 and noted RUQ abd pain. Abd US showed likely acute cholecystitis. Patient says she has had a few weeks of waxing and waning abd pain with occasional NV. Denies CP, dyspnea, or diarrhea. Presented with anaphylactic shock likely secondary to new detergent use at home and then noted to have cholecystitis and a cholecystectomy was completed on this admission. Exam Vital Signs (past 8 hours): - 06/06/22 07:29 06/06/22 12:00 Temperature 98.2 F 97.7 F Pulse Rate 68 66 Respiratory Rate 20 18 Blood Pressure 151/68 H 125/59 L Pulse Oximetry 95 98 Oxygen Flow Rate 0 0 Oxygen Delivery Method Room Air Oxygen Flow Rate 0 Narrative Exam Narrative: GEN: no acute distress HEENT: moist mucous membranes, PERRL NECK: trachea midline, no JVD CV: regular rate and rhythm, no murmurs PULM: clear bilaterally ABD: soft, minimal RUQ tenderness, nondistended, no organomegaly EXT: warm and well perfused, left leg larger than right since her stroke apparently NEURO: awake, alert, oriented, left facial droop, left arm and leg weakness w hich is chronic Objective Labs 06/06/22 06:00 06/06/22 06:00 Labs: Laboratory Results - last 24 hr 06/06/22 06/06/22 06/06/22 06:00 06:00 06:00 WBC 13.6 H RBC 3.89 L Hgb 11.0 L Hct 32.8 L MCV 84.4 MCH 28.2 MCHC 33.4 RDW 15.0 H Plt Count 256 Neut % (Auto) 89.6 H Lymph % (Auto) 5.6 L [place] % (Auto) 4.6 Eos % (Auto) 0.0 L Baso % (Auto) 0.2 Neut # (Auto) 67931 H Lymph # (Auto) 800 L [place] # (Auto) 600 Eos # (Auto) 0 Baso # (Auto) 0 Sodium 139 Potassium 3.7 Chloride 111 H Carbon Dioxide 21 L BUN 20 H Creatinine 0.81 Estimated GFR > 60 BUN/Creatinine Ratio 24.7 H Glucose 104 Calcium 8.2 L Magnesium 2.5 H Total Bilirubin 0.4 AST 56 H ALT 43 H Alkaline Phosphatase 82 Total Protein 6.0 L Albumin 3.1 L Globulin 2.9 Albumin/Globulin Ratio 1.1 PFSH Social History household members: spouse Smoking Status: Never smoker Assessment & Plan Time Spent With Patient Critical Care time: I spent a total of [] minutes of critical care time on this patient's care today; this time is exclusive of procedural time.
--- NOTE | 2022-06-06 12:49 | PM.DS.1 ---
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 Patient notes she started using a new detergent and today developed a full body rash with hives. EMS called and noted hypotension to 70's systolic ad a hives rash over most of the body. She was brought to ED where she got epi and benadryl and her hypotension and rash resolved. Was found to have WBC 21 and noted RUQ abd pain. Abd US showed likely acute cholecystitis. Patient says she has had a few weeks of waxing and waning abd pain with occasional NV. Denies CP, dyspnea, or diarrhea. Presented with anaphylactic shock likely secondary to new detergent use at home and then noted to have cholecystitis and a cholecystectomy was completed on this admission. Discharge Providers Provider Date of admission: 06/04/22 12:33 Discharge Date: 06/06/22 Primary care physician: Lori Shaw MD Consults: 06/04/22 12:44 Consult to General Surgery Stat Comment: Consulting Provider: Tara Mckeon Reason for consultation: acute cholecystitis Has provider been notified: Yes Discharge provider: Belen Appiah MD Summary Hospital Course Discharge Diagnosis: Concern for sepsis secondary to acute cholecystitis Acute urticarial reaction Anaphylactic shock with hypotension FREDY hypokalemia hypomagnesium hyponaatremia Chronic hypertension Chronic hypothyroidism Acute cholecystitis History of hemorrhagic CVA with residual left-sided deficits. Allergy to ingredients in Tide detergent causing acute urticarial reaction and anaphylactic shock with hypotension. Allergy to Flagyl during the hospital stay with severe itching Hospital Course: Patient presented post reaction to detergent at home with hives and hypotension. Treated on presentation to the ER with epinephrine and Benadryl. Responded appropriately. But noted to have right upper quadrant pain with underlying cholecystitis. This was confirmed by ultrasound of the abdomen. General surgery was consulted and a cholecystectomy was performed. Preoperatively the patient had Rocephin and Flagyl antibiotics and the patient had an allergic reaction with severe itching treated with Benadryl prior to surgery. Postoperatively the patient has done well and currently has no pain at the time of discharge. Status at Discharge Cognitive/behavioral status at discharge: at baseline, oriented Functional status at discharge: independent ambulation Overall status at discharge: patient is back to baseline Time Spent with Patient Time spent: Greater than 30 minutes Exam Vital Signs (past 8 hours): - 06/06/22 07:29 06/06/22 12:00 Temperature 98.2 F 97.7 F Pulse Rate 68 66 Respiratory Rate 20 18 Blood Pressure 151/68 H 125/59 L Pulse Oximetry 95 98 Oxygen Flow Rate 0 0 Oxygen Delivery Method Room Air Oxygen Flow Rate 0 Narrative Exam Narrative: GEN: no acute distress HEENT: moist mucous membranes, PERRL NECK: trachea midline, no JVD CV: regular rate and rhythm, no murmurs PULM: clear bilaterally ABD: soft, minnimal RUQ tenderness, nondistended, no organomegaly EXT: warm and well perfused, left leg larger than right since her stroke apparently NEURO: awake, alert, oriented, left facial droop, left arm and leg weakness which is chronic Objective Labs 06/06/22 06:00 06/06/22 06:00 Labs: Laboratory Results - last 24 hr 06/06/22 06/06/22 06/06/22 06:00 06:00 06:00 WBC 13.6 H RBC 3.89 L Hgb 11.0 L Hct 32.8 L MCV 84.4 MCH 28.2 MCHC 33.4 RDW 15.0 H Plt Count 256 Neut % (Auto) 89.6 H Lymph % (Auto) 5.6 L [place] % (Auto) 4.6 Eos % (Auto) 0.0 L Baso % (Auto) 0.2 Neut # (Auto) 93020 H Lymph # (Auto) 800 L [place] # (Auto) 600 Eos # (Auto) 0 Baso # (Auto) 0 Sodium 139 Potassium 3.7 Chloride 111 H Carbon Dioxide 21 L BUN 20 H Creatinine 0.81 Estimated GFR > 60 BUN/Creatinine Ratio 24.7 H Glucose 104 Calcium 8.2 L Magnesium 2.5 H Total Bilirubin 0.4 AST 56 H ALT 43 H Alkaline Phosphatase 82 Total Protein 6.0 L Albumin 3.1 L Globulin 2.9 Albumin/Globulin Ratio 1.1 PFSH Social History household members: spouse Smoking Status: Never smoker Discharge Plan Discharge Plan Patient Disposition: Home Discharge orders & Medications Prescriptions: New diphenhydramine HCl [Benadryl] 25 mg capsule 25 mg PO Q4H MDD 6 capsules PRN (Reason: allergic reaction) Qty: 50 0RF Continued ibuprofen [Advil] 200 MG tablet 200 mg PO QDAYP PRNQty: 0 hydrochlorothiazide 25 MG tablet 50 mg PO QDAY Qty: 0 latanoprost 0.005 % drops 1 drp OPHTH HS Qty: 0 levothyroxine 100 MCG tablet 100 mcg PO QAM Qty: 0 losartan 50 MG tablet 50 mg PO QDAY Qty: 0 omeprazole 20 MG tablet,delayed release (DR/EC) 20 mg PO QDAY Qty: 0 meloxicam [Mobic] 7.5 MG tablet 7.5 mg PO BIDCC PRNQty: 20 0RF alendronate [Fosamax] 70 MG tablet 70 mg PO QWEEKWE Qty: 0 cholecalciferol (vitamin D3) [Vitamin D3] 2,000 UNIT capsule 2,000 unit PO QDAY Qty: 0 fluoride (sodium) [PreviDent] 56 GM gel QDAY Qty: 0 sulfacetamide sodium-sulfur 10 %/5 % cream 1 amari TP Qty: 0 tolterodine 2 mg capsule,extended release 24hr 2 mg PO DAILY PRN (Reason: Spasms) baclofen 10 mg Tablet 10 mg PO BEDTIME metronidazole 0.75 % Cream 1 applic TOPICAL BEDTIME dorzolamide-timolol 22.3-6.8 mg/mL drops 1 drp ophthalmic (eye) BID doxycycline hyclate 50 mg Tablet 50 mg PO DAILY Follow up/Referrals: Lori Shaw MD [Primary Care Provider] - Stephanie Ramirez MD [Non-Staff] - Visit Report/Discharge Packet Stand Alone Forms: Patient Portal/API, Stroke Signs & Symptoms Discharge Data Primary Care Provider: Lori Shaw
--- NOTE | 2022-06-06 14:51 | PC.NURSE ---
Discharge Note Patient A&O, VSS, RA, no complaints of pain/discomfort. PIV discontinued. Patient able to dress self and pack all belongings with minimal assist. Patient taken down via wheelchair to POV.
== END 2022-06-06 14:30 | disposition home or self-care (01) | DRG 854 ==
LOC: ED 12:28 → AC 12:35
PROVIDERS: Surgery; Admitting Provider Student in an Organized Health Care Education/Training Program; Emergency Provider Emergency Medicine; PCP Internal Medicine; Referring Provider Emergency Medicine; Visit Provider Student in an Organized Health Care Education/Training Program
PROC: 0FT44ZZ Resection of Gallbladder, Percutaneous Endoscopic Approach (ICD-10-PCS; CPT 47562; principal; 2022-06-05 14:15)
DX: A41.9 Sepsis, unspecified organism (principal); E87.1 Hypo-osmolality and hyponatremia; K81.0 Acute cholecystitis; N17.9 Acute kidney failure, unspecified; T78.2XXA Anaphylactic shock, unspecified, initial encounter; I69.354 Hemiplegia and hemiparesis following cerebral infarction affecting left non-dominant side; R65.20 Severe sepsis without septic shock; E87.6 Hypokalemia; E03.9 Hypothyroidism, unspecified; T55.1X1A Toxic effect of detergents, accidental (unintentional), initial encounter; L23.5 Allergic contact dermatitis due to other chemical products; L29.9 Pruritus, unspecified; T37.3X5A Adverse effect of other antiprotozoal drugs, initial encounter; I10 Essential (primary) hypertension; E83.42 Hypomagnesemia; Z20.822 Contact with and (suspected) exposure to COVID-19
CPT/HCPCS: 36415; 47562; 70450; 70496; 70498; 71045; 76705; 80053; 81001; 82550; 83605; 83690; 83735; 84145; 84443; 84484; 85025; 85610; 87040; 87635; 93005; 93010; 96365; 96367; 96375; 99232; 99285; C9803; J0171; J0696; J1100; J1200; J2405; J2704; J2930; J3010; J3475